=== PATIENT | female | born 1945 | race African-American/Black ===

== ENCOUNTER 2016-07-30 18:50 | Inpatient (IN) ==
--- NOTE | 2016-07-30 19:01 | Emergency Department Note ---
Disposition Clinical Impression: CVA (cerebral vascular accident) Qualifiers: CVA mechanism: other Qualified Code(s): I63.8 - Other cerebral infarction Disposition: Admitted As Inpatient Condition: Fair General Adult HPI - General Chief complaint: ED Fall Stated complaint: L sided Weakness Time Seen by Provider: 07/30/16 18:52 Source: patient Limitations: no limitations Nursing Notes Reviewed: Yes Vital Signs Reviewed: Yes - History of Present Illness HPI Narrative: Patient was found down today prior to arrival. Patient states her last known well was read him. Patient is unsure what happened when she fell on the floor. Someone came over to her house and found the patient down. Patient normally is functional and lives at home alone. Patient denies prior history of similar symptoms. Patient does know she had a heart attack in 2014 but denies any current chest pain or shortness of breath. Patient denies any dizziness or pain. Pain Scale: 0 - Related Data Home Medications Medication Instructions Recorded Confirmed Diltiazem HCl [Diltiazem 24Hr Cd] 240 mg PO DAILY 02/17/16 07/30/16 Fenofibrate [Lofibra] 160 mg PO DAILY 02/17/16 07/30/16 Metoprolol [Lopressor] 50 mg PO BID 02/17/16 07/30/16 Sotalol [Betapace] 80 mg PO DAILY 02/17/16 07/30/16 Atorvastatin Calcium [Lipitor] 20 mg PO HS 07/30/16 07/30/16 Allergies Allergy/AdvReac Type Severity Reaction Status Date / Time Penicillins Allergy Hives Verified 02/17/16 19:46 Sulfa (Sulfonamide Allergy Hives Verified 02/17/16 19:46 Antibiotics) All systems ED: reviewed and negative except as stated. Past Medical History - Past Medical History Source: patient, other (ems) Medical history: Reports: hypertension, myocardial infarction, other Psychiatric history: Reports: no psych history - Social History Smoking Status: Never smoker Smokeless Tobacco Status: No Alcohol use: Reports: none Drug use: Reports: none Physical Exam - General Limitations: physical limitation General appearance: alert, lethargic - Head Head exam: atraumatic, normocephalic, normal inspection - Eye Eye exam: Present: normal appearance, PERRL, EOMI - ENT ENT exam: normal exam, normal oropharynx, mucous membranes moist - Neck Neck exam: Present: normal inspection, full ROM, trachea midline - Chest Chest inspection: Present: normal inspection, symmetric chest wall rise - Respiratory Respiratory exam: Present: normal lung sounds bilaterally - Cardiovascular Cardiovascular exam: Present: regular rate, normal rhythm, normal heart sounds - Abdominal Exam Abdominal exam: Present: soft, Non-Tender. Absent: tenderness, distention, guarding, rebound, rigidity - Extremities Exam Extremities exam: Present: other (no Movement of left upper and lower extremity) - Back Exam Back exam: Absent: tenderness, CVA tenderness (R), CVA tenderness (L) - Neurological Exam Neurological exam: Present: alert, other (Left upper and left lower extremity is flaccid. Patient also has some left-sided facial droop.) - Psychiatric Psychiatric exam: Present: normal affect - Skin Skin exam: Present: warm, dry, intact, normal color Course - Consultations Consultation #1: I discussed this patient with Dr. Abdi of neurology. He states that to start the patient aspirin and he will see the patient in consult. Vital Signs Temperature 97.3 F L 07/30/16 18:51 Pulse Rate 70 07/30/16 18:51 Respiratory Rate 20 07/30/16 18:51 Blood Pressure 159/118 07/30/16 18:51 O2 Sat by Pulse Oximetry 95 07/30/16 18:51 Temperature 97.6 F 07/30/16 23:27 Pulse Rate 82 07/30/16 23:27 Respiratory Rate 17 07/30/16 23:27 Blood Pressure 178/110 07/30/16 23:27 O2 Sat by Pulse Oximetry 98 07/30/16 23:27 Oxygen Delivery Oxygen Delivery Room Air Medical Decision Making - Differential Diagnosis CVA, aortic dissection, SC, pulmonary embolus. - Medical Records Medical records reviewed: Yes I reviewed the patient's medical records. - Lab Data Lab results reviewed: Yes I reviewed the patient's lab results. Result diagrams: 07/30/16 20:23 07/30/16 20:23 Lab Results 07/30/16 07/30/16 07/30/16 Range/Units 18:53 19:24 19:38 WBC (4.3-11.1) K/mcL RBC (3.82-4.97) M/mcL Hgb (11.5-15.4) g/dL Hct (35.3-44.9) % MCV (83.0-100.0) fL MCH (28.0-33.3) pg MCHC (31.6-35.5) g/dL RDW (11.5-14.5) % Plt Count (140-400) K/mcL MPV (9.4-12.4) fL Immature Gran % (0-4) % Seg Neutrophils % % Lymphocytes % % Monocytes % % Eosinophils % % Basophils % % Neutrophils # (1.6-8.9) K/mcL Lymphocytes # (0.6-4.6) K/mcL Monocytes # (0.0-1.3) K/mcL Eosinophils # (0.0-0.6) K/mcL Basophils # (0.0-0.2) K/mcL PT (9.4-12.1) Seconds INR APTT (26.0-36.0) Seconds Sodium (136-145) mEq/L Potassium (3.5-4.5) mEq/L Chloride (98-109) mEq/L Carbon Dioxide (19-29) mEq/L BUN (7-20) mg/dL Creatinine (0.57-1.11) mg/dL Est GFR ( Amer) (> 60) Est GFR (Non-Af Amer) (> 60) BUN/Creatinine Ratio (6-26) Glucose (70-99) mg/dL POC Glucose 100 H (58-89) Calculated Osmolality (280-300) Lactic Acid (0.5-2.2) mmol/L Calcium (8.6-10.8) mg/dL Total Bilirubin (0.2-1.2) mg/dL AST (5-34) Units/L ALT (0-55) Units/L Alkaline Phosphatase (38-126) Units/L Troponin I (0-0.03) ng/mL B-Natriuretic Peptide 573 H (0-100) pg/mL Serum Total Protein (6.0-8.3) g/dL Albumin (3.5-5.0) g/dL Globulin (2.4-3.5) g/dL Albumin/Globulin Ratio (1.1-2.2) Urine Color (Yellow) Urine Clarity (Clear) Urine pH (5.0-8.0) pH Units Ur Specific [place] (1.010-1.025) Urine Protein (Neg-Trace) mg/dL Urine Glucose (UA) (Normal) mg/dL Urine Ketones (Negative) mg/dL Urine Blood (Negative) Urine Nitrite (Negative) Urine Bilirubin (Negative) Urine Urobilinogen (Normal) mg/dL Ur Leukocyte Esterase (Negative) Urine Microscopic RBC (0-3) per hpf Urine Microscopic WBC (0-3) per hpf Ur Squamous Epith Cells (None-Few) per lpf Urine Bacteria (None-Few) per hpf Hyaline Casts (None-Few) per lpf Ur Culture Indicated? (NO) Specimen Rejected Hemolyzed 07/30/16 07/30/16 07/30/16 Range/Units 19:48 20:23 20:23 WBC 16.3 H (4.3-11.1) K/mcL RBC 5.22 H (3.82-4.97) M/mcL Hgb 15.1 (11.5-15.4) g/dL Hct 46.2 H (35.3-44.9) % MCV 88.5 (83.0-100.0) fL MCH 28.9 (28.0-33.3) pg MCHC 32.7 (31.6-35.5) g/dL RDW 13.8 (11.5-14.5) % Plt Count 301 (140-400) K/mcL MPV 9.8 (9.4-12.4) fL Immature Gran % 0.5 (0-4) % Seg Neutrophils % 86.0 % Lymphocytes % 8.8 % Monocytes % 4.5 % Eosinophils % 0.0 % Basophils % 0.2 % Neutrophils # 14.0 H (1.6-8.9) K/mcL Lymphocytes # 1.4 (0.6-4.6) K/mcL Monocytes # 0.7 (0.0-1.3) K/mcL Eosinophils # 0.0 (0.0-0.6) K/mcL Basophils # 0.0 (0.0-0.2) K/mcL PT 13.4 H (9.4-12.1) Seconds INR 1.2 APTT 27.5 (26.0-36.0) Seconds Sodium (136-145) mEq/L Potassium (3.5-4.5) mEq/L Chloride (98-109) mEq/L Carbon Dioxide (19-29) mEq/L BUN (7-20) mg/dL Creatinine (0.57-1.11) mg/dL Est GFR ( Amer) (> 60) Est GFR (Non-Af Amer) (> 60) BUN/Creatinine Ratio (6-26) Glucose (70-99) mg/dL POC Glucose (58-89) Calculated Osmolality (280-300) Lactic Acid (0.5-2.2) mmol/L Calcium (8.6-10.8) mg/dL Total Bilirubin (0.2-1.2) mg/dL AST (5-34) Units/L ALT (0-55) Units/L Alkaline Phosphatase (38-126) Units/L Troponin I (0-0.03) ng/mL B-Natriuretic Peptide (0-100) pg/mL Serum Total Protein (6.0-8.3) g/dL Albumin (3.5-5.0) g/dL Globulin (2.4-3.5) g/dL Albumin/Globulin Ratio (1.1-2.2) Urine Color Yellow (Yellow) Urine Clarity Cloudy A (Clear) Urine pH 7.0 (5.0-8.0) pH Units Ur Specific [place] 1.018 (1.010-1.025) Urine Protein 30 H (Neg-Trace) mg/dL Urine Glucose (UA) Normal (Normal) mg/dL Urine Ketones Negative (Negative) mg/dL Urine Blood Negative (Negative) Urine Nitrite Negative (Negative) Urine Bilirubin Negative (Negative) Urine Urobilinogen Normal (Normal) mg/dL Ur Leukocyte Esterase Negative (Negative) Urine Microscopic RBC 0-3 (0-3) per hpf Urine Microscopic WBC 0-3 (0-3) per hpf Ur Squamous Epith Cells Many H (None-Few) per lpf Urine Bacteria None Seen (None-Few) per hpf Hyaline Casts None Seen (None-Few) per lpf Ur Culture Indicated? NO (NO) Specimen Rejected 07/30/16 07/30/16 07/30/16 Range/Units 20:23 20:23 20:23 WBC (4.3-11.1) K/mcL RBC (3.82-4.97) M/mcL Hgb (11.5-15.4) g/dL Hct (35.3-44.9) % MCV (83.0-100.0) fL MCH (28.0-33.3) pg MCHC (31.6-35.5) g/dL RDW (11.5-14.5) % Plt Count (140-400) K/mcL MPV (9.4-12.4) fL Immature Gran % (0-4) % Seg Neutrophils % % Lymphocytes % % Monocytes % % Eosinophils % % Basophils % % Neutrophils # (1.6-8.9) K/mcL Lymphocytes # (0.6-4.6) K/mcL Monocytes # (0.0-1.3) K/mcL Eosinophils # (0.0-0.6) K/mcL Basophils # (0.0-0.2) K/mcL PT (9.4-12.1) Seconds INR APTT (26.0-36.0) Seconds Sodium 142 (136-145) mEq/L Potassium 3.6 (3.5-4.5) mEq/L Chloride 109 (98-109) mEq/L Carbon Dioxide 23 (19-29) mEq/L BUN 16 (7-20) mg/dL Creatinine 0.89 (0.57-1.11) mg/dL Est GFR ( Amer) > 60 (> 60) Est GFR (Non-Af Amer) > 60 (> 60) BUN/Creatinine Ratio 18 (6-26) Glucose 112 H (70-99) mg/dL POC Glucose (58-89) Calculated Osmolality 296 (280-300) Lactic Acid 1.4 (0.5-2.2) mmol/L Calcium 11.0 H (8.6-10.8) mg/dL Total Bilirubin 0.7 (0.2-1.2) mg/dL AST 23 (5-34) Units/L ALT 18 (0-55) Units/L Alkaline Phosphatase 65 (38-126) Units/L Troponin I 0.08 H* (0-0.03) ng/mL B-Natriuretic Peptide (0-100) pg/mL Serum Total Protein 7.3 (6.0-8.3) g/dL Albumin 4.1 (3.5-5.0) g/dL Globulin 3.2 (2.4-3.5) g/dL Albumin/Globulin Ratio 1.3 (1.1-2.2) Urine Color (Yellow) Urine Clarity (Clear) Urine pH (5.0-8.0) pH Units Ur Specific [place] (1.010-1.025) Urine Protein (Neg-Trace) mg/dL Urine Glucose (UA) (Normal) mg/dL Urine Ketones (Negative) mg/dL Urine Blood (Negative) Urine Nitrite (Negative) Urine Bilirubin (Negative) Urine Urobilinogen (Normal) mg/dL Ur Leukocyte Esterase (Negative) Urine Microscopic RBC (0-3) per hpf Urine Microscopic WBC (0-3) per hpf Ur Squamous Epith Cells (None-Few) per lpf Urine Bacteria (None-Few) per hpf Hyaline Casts (None-Few) per lpf Ur Culture Indicated? (NO) Specimen Rejected - Radiology Data Radiology results reviewed: Yes I reviewed the patient's radiology results. Head CT 07/30/16 18:52 IMPRESSION: 1. No acute intracranial abnormality. 2. Moderate periventricular subcortical white matter low attenuation, likely represent sequela of chronic small vessel ischemic disease. D/ / Dm Bassett MD / Dm Bassett MD Interpreting Provider: Dm Bassett MD Cervical Spine CT 07/30/16 18:53 IMPRESSION: 1. No acute fracture subluxation of the cervical spine. 2. [id number] multifocal cervical spine spondylosis, worse from C5-C7 3. Few scattered focal lucencies identified throughout the cervical spine, nonspecific, may represent osteoporosis. D/ / Dm Bassett MD / Dm Bassett MD Interpreting Provider: Dm Bassett MD Chest X-Ray 07/30/16 18:53 IMPRESSION: 1. Mild apparent widening of mediastinum, nonspecific and may be related to patient positioning overlying vascular structures. 2. Otherwise no acute cardiopulmonary findings. D/ / Dm Bassett MD / Dm Bassett MD Interpreting Provider: Dm Bassett MD - EKG Data EKG #1 EKG attestation: Yes I reviewed and interpreted this EKG. EKG shows normal: sinus rhythm Rate: normal Rhythm: NSR Critical Care Time Total Critical Care Time: 60 Attestation: Critical care performed: Time is exclusive of separately billable procedures. Time includes: direct patient care, patient reassessment, coordination of patient care, interpretation of data (laboratory data, radiology data, and respiratory data), review of patient's medical records, medical consultation and documentation of patient care. Procedures included in critical care time: Procedures excluded from critical care time:
[2016-07-30 19:57] LABS: Bilirubin,Urine Negative (Negative); Blood,Urine Negative (Negative); Clarity,Urine Cloudy (Clear); Color,Urine Yellow (Yellow); Glucose,Urine (UA) Normal (Normal); Ketones,Urine Negative (Negative); Leukocyte Esterase,Urine Negative (Negative); Nitrite,Urine Negative (Negative); Protein,Urine 30 mg/dL (Neg-Trace); Specific Gravity,Urine 1.018 (1.010-1.025); Urobilinogen,Urine Normal (Normal)
[2016-07-30 20:00] LABS: Bacteria,Urine None Seen per hpf (None-Few); Hyaline Casts,Urine None Seen per lpf (None-Few); RBC,Urine 0-3 per hpf (0-3); Squamous Epithelial Cell,Urine Many per lpf (None-Few); WBC,Urine 0-3 per hpf (0-3)
[2016-07-30 20:31] LABS: Basophils % 0.2 %; Hematocrit 46.2 % (35.3-44.9); Hemoglobin 15.1 g/dL (11.5-15.4); Immature Granulocytes % 0.5 % (0-4); Lymphocytes # 1.4 K/mcL (0.6-4.6); Lymphocytes % 8.8 %; Mean Corpuscular HGB Conc 32.7 g/dL (31.6-35.5); Mean Corpuscular Hemoglobin 28.9 pg (28.0-33.3); Mean Corpuscular Volume 88.5 fL (83.0-100.0); Mean Platelet Volume 9.8 fL (9.4-12.4); Monocytes # 0.7 K/mcL (0.0-1.3); Monocytes % 4.5 %; Platelet Count 301 K/mcL (140-400); Red Blood Count 5.22 M/mcL (3.82-4.97); Red Cell Distribution Width 13.8 % (11.5-14.5)
[2016-07-30 20:35] LABS: INR 1.2; Prothrombin Time 13.4 Seconds (9.4-12.1)
[2016-07-30 20:38] LABS: Activated Partial Thrombo Time 27.5 Seconds (26.0-36.0)
[2016-07-30 20:44] LABS: Alanine Aminotransferase 18 Units/L (0-55); Albumin 4.1 g/dL (3.5-5.0); Albumin/Globulin Ratio 1.3 (1.1-2.2); Alkaline Phosphatase 65 Units/L (38-126); Aspartate Amino Transferase 23 Units/L (5-34); BUN/Creatinine Ratio 18 (6-26); Bilirubin,Total 0.7 mg/dL (0.2-1.2); Blood Urea Nitrogen 16 mg/dL (7-20); Carbon Dioxide 23 mEq/L (19-29); Chloride 109 mEq/L (98-109); Globulin 3.2 g/dL (2.4-3.5); Glucose 112 mg/dL (70-99); Osmolality,Calculated 296 (280-300); Potassium 3.6 mEq/L (3.5-4.5); Sodium 142 mEq/L (136-145); Total Protein 7.3 g/dL (6.0-8.3); eGFR For African Americans > 60 (> 60); eGFR For Non-African Americans > 60 (> 60)
[2016-07-30] MEDS ORDERED: Aspirin 81 MG TAB.CHEW PO STA (21:54)
[2016-07-31] MEDS ORDERED: *HR* Morphine 2 MG/ML SYRINGE IVP ONE
[2016-07-31] MEDS ORDERED: *HR* Promethazine 25 MG/ML VIAL IVP ONE (00:11)
[2016-07-31] MEDS ORDERED: Ondansetron 4 MG/2 ML VIAL IVP PRN (01:22)
--- NOTE | 2016-07-31 01:59 | Internal Med History&Physical ---
<Richard Goddard - Last Filed: 07/31/16 02:57> Date of Encounter: 07/31/16 Time of Encounter: 01:00 Assessment and Plan (1) CVA (cerebral vascular accident) Current visit: Yes Status: Acute - Acute onset of stroke resulting in dysarthria, left facial droop and left hemiparesis. - Suspect secondary to cardiac thrombus given patient's paroxysmal A-fib and only on baby aspirin for anticoagulation. - CT head found no acute intracranial abnormality. - Will obtain MRI brain and MRA head & neck for further evaluation. - Will obtain TTE to evaluate possible cardiac thrombus. If that's negative, consider cardiology consult to obtain ELOINA for better evaluation. - Continue telemetry monitoring. - Neurology has been called and consulted per ED physician. Appreciate neurology input. - Speech therapy to evaluate and treat dysarthria and dysphagia. - Will start PO medications, especially aspirin and atorvastatin once patient passed swallow evaluation by speech therapy. - PT/OT and social service consult for the need of rehab after discharge. - Fall precaution. - Closely monitor with frequent neuro check. Qualifiers: CVA mechanism: unspecified Qualified Code(s): I63.9 - Cerebral infarction, unspecified (2) Paroxysmal atrial fibrillation Current visit: Yes Status: Chronic - Currently rate controlled and in sinus rhythm. - Will resume patient home Cardizem, Sotalol and Lopressor once patient passed swallow evaluation by speech therapy. - Per patient, her only anticoagulation prior to admission is only aspirin. - Patient may need to discuss with cardiology regarding anticoagulation choice. (3) Elevated troponin Current visit: Yes Status: Acute - Elevated troponin at 0.08. - Likely secondary to stroke. Doubt [place] given no significant ischemic change on EKG. - Will repeat troponin in the morning. (4) Hypertension Current visit: Yes Status: Chronic - BP 170s/110s. - Hold patient's home antihypertensive medications to allow permissive hypertension. No treatment unless SBP > 220 or DBP > 120. - Continue to monitor. Qualifiers: Hypertension type: essential hypertension Qualified Code(s): I10 - Essential (primary) hypertension (5) DVT prophylaxis Current visit: Yes Status: Acute - SQ heparin. Internal Medicine - H&P: HPI Chief complaint: Stroke Admitted From: Emergency Dept Plans for Post Hospital Care: Transfer Group Home Facility History of present illness: Ms. Ball is a 71 year old female with PMH of paroxysmal A-fib (on Cardizem, Sotalol, Lopressor & baby aspirin), HTN, hyperlipidemia, sarcoidosis, hypertrophic obstructive cardiomyopathy. Patient was found fall on the floor for more than 14 hours (3 am to 5 pm on 07/30) and sent to [facility] ED. Patient reports her knee giving off in her way to restroom and resulted in fall forward on her chest and hit the front of her head. Patient denies loss of consciousness or chest pain/discomfort prior to the event. Patient cannot get up as she cannot move, likely from her left-sided weakness. Per family member who found patient, she had some urinary incontinence but no jerking or tongue bitting. Patient was also noted to have slurred speech and reports difficult swallowing. Patient reports having short period of black out of left vision recently. Patient denies hearing change, fever, chills, lower extremity edema. Patient states she doesn't want resuscitation if cardiac arrest. Patient reports no known metal implant or pacemaker. Past Med Surg Social Fam HX - Past Medical History Medical history: atrial fibrillation (Paroxysmal), cardiomyopathy (hypertrophic obstructive cardiomyopathy.), hyperlipidemia, hypertension, myocardial infarction (2015. No significant stenosis on heart cath in 2016.), other ( Sarcoidosis) Psychiatric history: no psych history - Past Surgical History Surgical History: cholecystectomy, hysterectomy, other (exploratory laproscopy) - Social History Smoking Status: Never smoker Smokeless Tobacco Status: No Alcohol use: none Drug use: none - Family History Mother Living Status: Hx Family Cardiac Disorders: Yes (HTN) Hx Family Neurologic Disorders: Yes (Stroke, Culp's palsy) Internal Medicine - H&P: Meds Diltiazem HCl [Diltiazem 24Hr Cd] 240 mg PO DAILY 02/17/16 [History] Fenofibrate [Lofibra] 160 mg PO DAILY 02/17/16 [History] Metoprolol [Lopressor] 50 mg PO BID 02/17/16 [History] Sotalol [Betapace] 80 mg PO DAILY 02/17/16 [History] Atorvastatin Calcium [Lipitor] 20 mg PO HS 07/30/16 [History] Allergies Penicillins Allergy (Verified 02/17/16 19:46) Hives Sulfa (Sulfonamide Antibiotics) Allergy (Verified 02/17/16 19:46) Hives All Systems PM: A 10-system review of systems was performed and is negative for pertinent findings except as documented above in the HPI. - Constitutional Constitutional: falls, no chills, no fever(s) - EENT Eyes: change in vision Ears: no decreased hearing Nose, mouth and throat: dysphagia - Cardiovascular Cardiovascular ROS IM: lightheadedness, syncope (Occasional syncope when change in position (e.g. getting up from sitting position)), no chest pain, no palpitations - Respiratory Respiratory: cough (nonproductive), no dyspnea, no hemoptysis - Gastrointestinal Gastrointestinal: abdominal pain (mid suprapubic, aggravated when patient tried to get up.), nausea, no diarrhea, no hematochezia, no melena, no vomiting - Genitourinary Genitourinary: no difficulty urinating, no dysuria, no hematuria - Musculoskeletal Musculoskeletal ROS IM: no arthralgias, no myalgias - Integumentary Integumentary IM: no pruritus, no rash - Neurological Neurological ROS: as per HPI - Hematologic/Lymphatic Hematologic/Lymphatic: no easy bleeding, no easy bruising - Constitutional Vitals: Temp Pulse Resp BP Pulse Ox 97.6 F 82 18 178/110 98 07/30/16 23:30 07/30/16 23:30 07/30/16 23:30 07/30/16 23:30 07/30/16 23:27 General appearance: Present: cooperative, A&O X 3, no acute distress, answers questions appropriately (Patient seems to use correct words to answer but canot say them clearly from dysarthria. ) - Head Head exam: Present: atraumatic, normocephalic - Eye Eye exam: Present: EOMI, PERRL, conjuntiva pink, sclera anicteric - Neck Neck exam general surgery: Present: supple, trachea midline. Absent: lymphadenopathy - Respiratory Respiratory exam: Present: decreased breath sounds. Absent: accessory muscle use, rales, rhonchi, wheezes - Cardiovascular Cardiovascular exam: Present: RRR, +S1, +S2. Absent: diastolic murmur, gallop, rubs, systolic murmur - GI/Abdominal GI/Abdominal exam: Present: normal bowel sounds, soft, tenderness (Mid suprapubic area), no peritoneal signs. Absent: distended - Extremities Exam Extremities exam: Present: warm, radial pulses palpable and symetrical. Absent : calf tenderness, cyanotic, pedal edema - Neurological Exam Neurological exam: Present: CN II-XII intact (Except left facial droop), oriented X3. Absent: pronater drift, facial droop, speech deficit Additional comments: Patient cannot move left upper and lower extremities. Also no sensation of left upper extremity. Decrease DTRs of left upper and lower extremities. - Skin Skin exam: Present: dry, intact Internal Med - H&P Results - Labs CBC & Chem 7: 07/30/16 20:23 07/30/16 20:23 Labs: Short CBC 07/30/16 Range/Units 20:23 WBC 16.3 H (4.3-11.1) K/mcL Hgb 15.1 (11.5-15.4) g/dL Hct 46.2 H (35.3-44.9) % Plt Count 301 (140-400) K/mcL Neutrophils # 14.0 H (1.6-8.9) K/mcL BMP 07/30/16 Range/Units 20:23 Sodium 142 (136-145) mEq/L Potassium 3.6 (3.5-4.5) mEq/L Chloride 109 (98-109) mEq/L Carbon Dioxide 23 (19-29) mEq/L BUN 16 (7-20) mg/dL Creatinine 0.89 (0.57-1.11) mg/dL Glucose 112 H (70-99) mg/dL Calcium 11.0 H (8.6-10.8) mg/dL Cardiac Enzymes 07/30/16 Range/Units 20:23 Troponin I 0.08 H* (0-0.03) ng/mL Liver Function 07/30/16 Range/Units 20:23 Total Bilirubin 0.7 (0.2-1.2) mg/dL AST 23 (5-34) Units/L ALT 18 (0-55) Units/L Alkaline Phosphatase 65 (38-126) Units/L Albumin 4.1 (3.5-5.0) g/dL Urine 07/30/16 Range/Units 19:48 Urine Color Yellow (Yellow) Urine Clarity Cloudy A (Clear) Urine pH 7.0 (5.0-8.0) pH Units Ur Specific [place] 1.018 (1.010-1.025) Urine Protein 30 H (Neg-Trace) mg/dL Urine Glucose (UA) Normal (Normal) mg/dL - EKG Data -: EKG Interpreted by Myself EKG shows normal: sinus rhythm Rate: tachycardia - EKG Data Prior EKG available for review: no EKG comments: 07/31/16 02:49 First degree AV block & LVH. No significant ischemic change. - Impressions Impressions Head CT 07/30/16 18:52 IMPRESSION: 1. No acute intracranial abnormality. 2. Moderate periventricular subcortical white matter low attenuation, likely represent sequela of chronic small vessel ischemic disease. D/ / Dm Bassett MD / Dm Bassett MD Interpreting Provider: Dm Bassett MD Cervical Spine CT 07/30/16 18:53 IMPRESSION: 1. No acute fracture subluxation of the cervical spine. 2. [id number] multifocal cervical spine spondylosis, worse from C5-C7 3. Few scattered focal lucencies identified throughout the cervical spine, nonspecific, may represent osteoporosis. D/ / Dm Bassett MD / Dm Bassett MD Interpreting Provider: Dm Bassett MD Chest X-Ray 07/30/16 18:53 IMPRESSION: 1. Mild apparent widening of mediastinum, nonspecific and may be related to patient positioning overlying vascular structures. 2. Otherwise no acute cardiopulmonary findings. D/ / Dm Bassett MD / Dm Bassett MD Interpreting Provider: Dm Bassett MD <Dejon Roy R - Last Filed: 07/31/16 08:29> Date of Encounter: 07/31/16 Internal Medicine - H&P: HPI History of present illness: Ms. Ball is a 71 year old female All Systems PM: A 10-system review of systems was performed and is negative for pertinent findings except as documented above in the HPI. - Constitutional Vitals: Temp Pulse Resp BP Pulse Ox 97.8 F 74 16 133/89 95 07/31/16 06:46 07/31/16 06:46 07/31/16 06:46 07/31/16 06:46 07/31/16 06:46 Internal Med - H&P Results - Labs CBC & Chem 7: 07/31/16 05:08 07/31/16 05:08 Labs: Short CBC 07/31/16 Range/Units 05:08 WBC 12.9 H (4.3-11.1) K/mcL Hgb 14.1 (11.5-15.4) g/dL Hct 43.2 (35.3-44.9) % Plt Count 307 (140-400) K/mcL Neutrophils # 10.4 H (1.6-8.9) K/mcL BMP 07/31/16 05:08 Sodium 144 Potassium 3.8 Chloride 109 Carbon Dioxide 24 BUN 20 Creatinine 1.03 Glucose 122 H Calcium 10.7 Cardiac Enzymes 07/31/16 Range/Units 05:08 Troponin I 0.16 H* (0-0.03) ng/mL Liver Function 07/31/16 Range/Units 05:08 Total Bilirubin 0.8 (0.2-1.2) mg/dL AST 34 (5-34) Units/L ALT 19 (0-55) Units/L Alkaline Phosphatase 58 (38-126) Units/L Albumin 3.9 (3.5-5.0) g/dL - Attending Attestation I performed history and physical examination of the patient and discussed management with resident/Cosmetician. I reviewed the resident/ Interns note and agree with the documented findings and plan of care. 71 Y/F with h/o paroxysmal A-fib not on anticoagulation, HTN, hyperlipidemia, sarcoidosis, hypertrophic obstructive cardiomyopathy. Patient was apparently found on the floor possibly there for several hours. Reportedly, her knees gave way and fell down, without loss of consciousness. She reported left sided weakness, speech and swallowing problems. CT head is negative for acute lesions. O/E: Left upper and lower extremity weakness; up going left plantar; left facial weakness. Pt somnolent and not talking at my evaluation. Cardiac: systolic murmur present; Lungs: few bilateral basal crackles. EKG personally reviewed by me shows sinus rhythm; T wave inversion in lead III, V2-v6. Labs reviewed. A/P: Acute CVA: Likely embolic source from the heart (h/o Paroxysmal A Fib). Will obtain MRI to pain, MRA of head and neck. Neurology consultation. Specific PT, OT evaluation. Echocardiogram. Cardiology consult for elevated troponin and paroxysmal A Fib.
[2016-07-31 06:00] LABS: Basophils % 0.3 %; Eosinophils % 0.1 %; Hematocrit 43.2 % (35.3-44.9); Hemoglobin 14.1 g/dL (11.5-15.4); Immature Granulocytes % 0.4 % (0-4); Lymphocytes # 1.7 K/mcL (0.6-4.6); Lymphocytes % 12.8 %; Mean Corpuscular HGB Conc 32.6 g/dL (31.6-35.5); Mean Corpuscular Hemoglobin 28.8 pg (28.0-33.3); Mean Corpuscular Volume 88.3 fL (83.0-100.0); Mean Platelet Volume 10.3 fL (9.4-12.4); Monocytes # 0.8 K/mcL (0.0-1.3); Monocytes % 6.1 %; Neutrophils # 10.4 K/mcL (1.6-8.9); Platelet Count 307 K/mcL (140-400); Red Blood Count 4.89 M/mcL (3.82-4.97); Red Cell Distribution Width 13.9 % (11.5-14.5); Segmented Neutrophils % 80.3 %
[2016-07-31 06:07] LABS: Hemoglobin A1C 5.3 %
[2016-07-31] MEDS: Pantoprazole 40 MG VIAL IVP SCH (06:07)
[2016-07-31 06:19] LABS: Alanine Aminotransferase 19 Units/L (0-55); Albumin 3.9 g/dL (3.5-5.0); Albumin/Globulin Ratio 1.3 (1.1-2.2); Alkaline Phosphatase 58 Units/L (38-126); Aspartate Amino Transferase 34 Units/L (5-34); BUN/Creatinine Ratio 19 (6-26); Bilirubin,Total 0.8 mg/dL (0.2-1.2); Blood Urea Nitrogen 20 mg/dL (7-20); Calcium 10.7 mg/dL (8.6-10.8); Carbon Dioxide 24 mEq/L (19-29); Chloride 109 mEq/L (98-109); Chol/HDL Ratio 4.2 (0-4.9); Cholesterol 176 mg/dL (< 200); Globulin 3.1 g/dL (2.4-3.5); Glucose 122 mg/dL (70-99); HDL Cholesterol 42 mg/dL (40-59); LDL Cholesterol,Calculated 109 mg/dL (0-99); Osmolality,Calculated 302 (280-300); Potassium 3.8 mEq/L (3.5-4.5); Sodium 144 mEq/L (136-145); Triglycerides 125 mg/dL (< 150); eGFR For African Americans > 60 (> 60); eGFR For Non-African Americans 53 (> 60)
[2016-07-31 06:35] LABS: Thyroid Stimulating Hormone 0.833 mcIU/mL (0.350-4.840)
--- NOTE | 2016-07-31 08:56 | Neurology - Consult Note ---
Date of Encounter: 07/31/16 Time of Encounter: 08:56 Assessment and Plan (1) Left-sided weakness Current Visit: Yes Status: Acute Currently patient still has dysarthria, tingling/numbness of left lower extremity, weakness of left upper/lower extremity, and she is drowsy. Head CT scan without contrast showed no acute intracranial abnormality, moderate ventricular subcortical white matter low attenuation, likely representing sequela of chronic small vessel ischemic disease. MRI of the brain/echo/MRA head and neck pending, patient has a history of atrial fibrillation but not on chronic anticoagulation therapy, she only takes aspirin daily, with her current mental status and severity of her neurological symptoms along with hx of a-fib not on anticoagulation, suspecting embolic stroke, lipid panel reviewed and currently she is on high intensity statin therapy, will make further recommendations after reviewing the images. History of Present Illness Chief complaint: Status post fell, slurred speech, left-sided weakness/tingling/ numbness HPI: Ms. Blal is a 71 year old female with history of paroxysmal atrial fibrillation, hypertrophic obstructive cardiomyopathy, hypertension, and hyperlipidemia who was brought from her home to the ER after she was found down on the floor for more than 12 hours by her neighbor and she presented to the ER with left-sided facial droop, left upper/lower extremities weakness/tingling/ numbness, and slurred speech. Patient has no history of stroke, and she never had these symptoms in the past, she lives alone, she does not use cane or walker , she is usually functional with activities of daily living, and has no baseline dementia. Unclear how she fell at home, loss of consciousness versus mechanical fall, patient is poor historian at this time with difficulty with her speech, and she is not on anticoagulation therapy for her history of atrial fibrillation, she just takes baby aspirin daily. Head CT scan without contrast showed no acute intracranial abnormality, moderate ventricular subcortical white matter low attenuation, likely representing sequela of chronic small vessel ischemic disease. When I saw her in the room, patient was somnolent, will open her eyes to voice, she still has slurred speech, tingling/numbness on the left lower extremity and weakness on left upper/lower extremities with slight left-sided facial droop, difficult to obtain accurate history from the patient at this time due to her speech and current mental status. Past Med Surg Social Fam HX - Past Medical History Medical history: atrial fibrillation (Paroxysmal), cardiomyopathy (hypertrophic obstructive cardiomyopathy.), hyperlipidemia, hypertension, myocardial infarction (2015. No significant stenosis on heart cath in 2016.), other ( Sarcoidosis) Psychiatric history: no psych history - Past Surgical History Surgical History: cholecystectomy, hysterectomy, other (exploratory laproscopy) - Social History Smoking Status: Never smoker Smokeless Tobacco Status: No Alcohol use: none Drug use: none - Family History Mother Living Status: Hx Family Cardiac Disorders: Yes (HTN) Hx Family Neurologic Disorders: Yes (Stroke, Culp's palsy) Father History Unknown: Yes Medications and Allergies Diltiazem HCl [Diltiazem 24Hr Cd] 240 mg PO DAILY 02/17/16 [History] Fenofibrate [Lofibra] 160 mg PO DAILY 02/17/16 [History] Metoprolol [Lopressor] 50 mg PO BID 02/17/16 [History] Sotalol [Betapace] 80 mg PO DAILY 02/17/16 [History] Atorvastatin Calcium [Lipitor] 20 mg PO HS 07/30/16 [History] Allergies Penicillins Allergy (Verified 02/17/16 19:46) Hives Sulfa (Sulfonamide Antibiotics) Allergy (Verified 02/17/16 19:46) Hives All Systems: A 10-system review of systems was performed and is negative for pertinent findings except as documented above in the HPI. Review of Systems: Review of systems is limited due to her speech difficulty and current mental status, patient is very drowsy at this time, patient admits tingling/numbness of lower extremity and weakness of the left upper/lower extremities. 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4 K/mcL (1.6-8.9) H 07/31/16 05:08 PT 13.4 Seconds (9.4-12.1) H 07/30/16 20:23 Est GFR (Non-Af Amer) 53 (> 60) L 07/31/16 05:08 Glucose 122 mg/dL (70-99) H 07/31/16 05:08 POC Glucose 100 (58-89) H 07/30/16 18:53 Calculated Osmolality 302 (280-300) H 07/31/16 05:08 Troponin I 0.16 ng/mL (0-0.03) H* 07/31/16 05:08 B-Natriuretic Peptide 573 pg/mL (0-100) H 07/30/16 19:24 LDL Cholesterol, Calc 109 mg/dL (0-99) H 07/31/16 05:08 Urine Clarity Cloudy (Clear) A 07/30/16 19:48 Urine Protein 30 mg/dL (Neg-Trace) H 07/30/16 19:48 Ur Squamous Epith Cells Many per lpf (None-Few) H 07/30/16 19:48 Consult Discharge Plan - Plan Referrals: NO,PCP [Primary Care Provider] -
--- NOTE | 2016-07-31 11:19 | Cardiology Consult Note ---
Addendum entered and electronically signed by Trey Taylor CNP 07/31/16 12:45: Discussed with neurologist Dr. Abdi. He recommends waiting on MRI results, anticipate starting Xarelto in a few days, but will determine once MRI results. Original Note: Date of Encounter: 07/31/16 Time of Encounter: 11:16 Assessment and Plan (1) Paroxysmal atrial fibrillation Current Visit: Yes Status: Chronic Known hx of PAF. EKG and telemetry show pt is maintaining SR. She reports having palpitations last week and feeling like she was in A-Fib. Recommend resuming home Cardizem, Sotalol and Lopressor once patient passes swallow eval. Will change Sotalol from 80mg daily to 40mg BID. EKG reviewed, QRS and QTc within acceptable range. Here with CVA. CHADSVASC of 5 (Age, Female, HTN, CVA). Recommend anticoagulation for her PAF. Discussed NOACs vs. Coumadin. Pt has no preference. Xarelto carrizales check $36/ month. Will start. Pt reports recent falls, mechanical/orthostatic hypotension ( check orthostatic vitals). Given CVA, benefit of anticoagulation currently outweighs risk. (2) CVA (cerebral vascular accident) Current Visit: Yes Status: Acute Acute onset of stroke resulting in dysarthria, left facial droop and left hemiparesis. Suspect embolic source given hx of PAF on ASA only. CT head found no acute intracranial abnormality. MRI brain and MRA head & neck ordered by primary team. Echo pending. Maintaining SR on Sotalol currently. Neurology following. CHADSVASC of 5 (Age, Female, HTN, CVA). Recommend anticoagulation for her PAF. Discussed NOACs vs. Coumadin. Pt has no preference. Xarelto carrizales check $36/ month. Will start. Pt reports recent falls, mechanical. Given suspected CVA, benefit of anticoagulation currently outweighs risk. Qualifiers: CVA mechanism: unspecified Qualified Code(s): I63.9 - Cerebral infarction, unspecified (3) Elevated troponin Current Visit: Yes Status: Acute Troponins 0.08, 0.16 in setting of suspected CVA. Likely demand ischemia, nondiagnostic for ACS. Pt denies chest pain prior to fall. Reports current chest soreness s/p fall. [facility] 09/2015 at outside facility showed no significant CAD. Echo pending. (4) Hypertrophic cardiomyopathy Current Visit: Yes Status: Chronic Outside echo 09/2013 resting gradient 22mmHg. Current echo pending. Discussion w patient/family: The assessment and plan as outlined above was discussed with the patient and/or family members who expressed understanding and agreement. All questions were answered. Thank you for involving us in the care of your patient. Please call with any questions. I will discuss all the above with Dr. Franco and make changes as necessary. History of Present Illness Consult date: 07/31/16 Requesting physician: Dejon Roy Consult reason: CVA, A-Fib, elevated troponin Chief complaint: slurred speech, weakness History of present illness: Ms. Ball is a 71 year old female with PMH of PAF on Sotalol and ASA only for anticoagulation, hypertrophic obstructive cardiomyopathy, HTN, and HLD who was brought from her home to the ER after she was found down on the floor for more than 12 hours. She presented with left-sided facial droop, left upper/lower extremities weakness/tingling/numbness, and slurred speech. Patient has no history of stroke, and she never had these symptoms in the past, she lives alone , she does not use cane or walker, she is usually functional with activities of daily living, and has no baseline dementia. Family at bedside. Pt denies any syncopal event, states she just "toppled over". Head CT scan without contrast showed no acute intracranial abnormality, moderate ventricular subcortical white matter low attenuation, likely representing sequela of chronic small vessel ischemic disease. Pt has her eyes closed with in room, but will shake her head to questions and attempt to answer questions. She still has slurred speech, tingling/numbness on the left lower extremity and weakness on left upper /lower extremities with slight left-sided facial droop. Brain MRI is ordered, echo pending, carotids were ordered. Troponins found to be 0.08, 0.16. Pt reports chest soreness after her fall, but none prior. Pt does report she had palpitations last week and felt like she was in A-Fib. EKG sinus rhythm and tele all shows SR. Past CV testing: Per [facility], [facility] 10/04/15 in [place]: No significant CAD. Past Med Surg Social Fam HX - Past Medical History Medical history: atrial fibrillation (Paroxysmal), cardiomyopathy (hypertrophic obstructive cardiomyopathy.), hyperlipidemia, hypertension, myocardial infarction (2015. No significant stenosis on heart cath in 2016.), other ( Sarcoidosis) Psychiatric history: no psych history - Past Surgical History Surgical History: cholecystectomy, hysterectomy, other (exploratory laproscopy) - Social History Smoking Status: Never smoker Smokeless Tobacco Status: No Alcohol use: none Drug use: none - Family History Mother Living Status: Hx Family Cardiac Disorders: Yes (HTN) Hx Family Neurologic Disorders: Yes (Stroke, Culp's palsy) Father History Unknown: Yes Medications and Allergies Diltiazem HCl [Diltiazem 24Hr Cd] 240 mg PO DAILY 02/17/16 [History] Fenofibrate [Lofibra] 160 mg PO DAILY 02/17/16 [History] Metoprolol [Lopressor] 50 mg PO BID 02/17/16 [History] Sotalol [Betapace] 80 mg PO DAILY 02/17/16 [History] Atorvastatin Calcium [Lipitor] 20 mg PO HS 07/30/16 [History] Allergies Penicillins Allergy (Verified 02/17/16 19:46) Hives Sulfa (Sulfonamide Antibiotics) Allergy (Verified 02/17/16 19:46) Hives All Systems Review: A 10-system review of systems was performed and is negative for pertinent findings except as documented above in the HPI. - Constitutional Constitutional: frequent falls, weakness - Cardiovascular Cardiovascular: as per HPI, irregular heart rhythm, palpitations - Neurological Neurological: abnormal speech, focal weakness Physical Examination Vital Signs Temp Pulse Resp BP Pulse Ox 07/31/16 06:46 97.8 F 74 16 133/89 95 07/31/16 03:30 98.2 F 81 20 148/97 07/31/16 01:30 98 07/30/16 23:30 97.6 F 82 18 178/110 07/30/16 23:27 97.6 F 82 17 178/110 98 07/30/16 22:52 16 168/112 07/30/16 20:54 193/111 07/30/16 20:53 76 16 178/112 99 07/30/16 18:51 97.3 F L 70 20 159/118 95 Intake and Output 07/30/16 07/31/16 07/31/16 23:59 07:59 15:59 Other: Weight 81.647 kg Blood Glucose* 100 General: Conversant, No Apparent Distress HEENT: Atraumatic, Normocephaly, Mucus Membranes Moist Neck: No JVD, Normal carotid pulses Cardiac: Reg Rate and Rhythm, Normal S1 and S2, No Murmur Lungs: Normal Breath Sounds, No Wheeze, Rales, Rhonchi Neuro: Other (deficits noted, slurred speech, left sided weakness) Abdomen: Soft, Non-Tender Skin: No rashes noted on visualized skin Musculoskeletal: Other (chest wall tenderness) Extremities: No Clubbing, No Cyanosis, No Edema, Normal Pulses Results 07/31/16 05:08 07/31/16 05:08 Lab Results 07/31/16 07/31/16 07/31/16 05:08 05:08 05:08 WBC 12.9 H Hgb 14.1 Hct 43.2 Plt Count 307 Sodium 144 Potassium 3.8 Chloride 109 Carbon Dioxide 24 BUN 20 Creatinine 1.03 Glucose 122 H Calcium 10.7 Total Bilirubin 0.8 AST 34 ALT 19 Alkaline Phosphatase 58 Troponin I 0.16 H* TSH 0.833 Short CBC 07/31/16 07/30/16 Range/Units 05:08 20:23 WBC 12.9 H 16.3 H (4.3-11.1) K/mcL Hgb 14.1 15.1 (11.5-15.4) g/dL Hct 43.2 46.2 H (35.3-44.9) % Plt Count 307 301 (140-400) K/mcL Neutrophils # 10.4 H 14.0 H (1.6-8.9) K/mcL BMP 07/31/16 07/30/16 Range/Units 05:08 20:23 Sodium 144 142 (136-145) mEq/L Potassium 3.8 3.6 (3.5-4.5) mEq/L Chloride 109 109 (98-109) mEq/L Carbon Dioxide 24 23 (19-29) mEq/L BUN 20 16 (7-20) mg/dL Creatinine 1.03 0.89 (0.57-1.11) mg/dL Glucose 122 H 112 H (70-99) mg/dL Calcium 10.7 11.0 H (8.6-10.8) mg/dL Cardiac Enzymes 07/31/16 07/30/16 Range/Units 05:08 20:23 Troponin I 0.16 H* 0.08 H* (0-0.03) ng/mL Liver Function 07/31/16 07/30/16 Range/Units 05:08 20:23 Total Bilirubin 0.8 0.7 (0.2-1.2) mg/dL AST 34 23 (5-34) Units/L ALT 19 18 (0-55) Units/L Alkaline Phosphatase 58 65 (38-126) Units/L Albumin 3.9 4.1 (3.5-5.0) g/dL Urine 07/30/16 Range/Units 19:48 Urine Color Yellow (Yellow) Urine Clarity Cloudy A (Clear) Urine pH 7.0 (5.0-8.0) pH Units Ur Specific [place] 1.018 (1.010-1.025) Urine Protein 30 H (Neg-Trace) mg/dL Urine Glucose (UA) Normal (Normal) mg/dL Impressions Head CT 07/30/16 18:52 IMPRESSION: 1. No acute intracranial abnormality. 2. Moderate periventricular subcortical white matter low attenuation, likely represent sequela of chronic small vessel ischemic disease. D/ / Dm Bassett MD / Dm Bassett MD Interpreting Provider: Dm Bassett MD Cervical Spine CT 07/30/16 18:53 IMPRESSION: 1. No acute fracture subluxation of the cervical spine. 2. [id number] multifocal cervical spine spondylosis, worse from C5-C7 3. Few scattered focal lucencies identified throughout the cervical spine, nonspecific, may represent osteoporosis. D/ / Dm Bassett MD / Dm Bassett MD Interpreting Provider: Dm Bassett MD Chest X-Ray 07/30/16 18:53 IMPRESSION: 1. Mild apparent widening of mediastinum, nonspecific and may be related to patient positioning overlying vascular structures. 2. Otherwise no acute cardiopulmonary findings. D/ / Dm Bassett MD / Dm Bassett MD Interpreting Provider: Dm Bassett MD Active Medications Aspirin (Aspirin) 81 mg PO DAILY SARAH Stop: 01/30/17 09:01 Atorvastatin Calcium (Lipitor) 80 mg PO HS SARAH Stop: 01/30/17 09:01 Ondansetron HCl (Zofran) 4 mg IVP Q8HR PRN PRN Reason: Nausea And Vomiting Stop: 01/30/17 01:23 Pantoprazole Sodium (Protonix) 40 mg IVP 0630 SARAH Stop: 01/30/17 06:31 Last Admin: 07/31/16 06:07 Dose: 40 mg - Imaging and Cardiology Chest Xray: report reviewed Echo: pending Cardiac cath: report reviewed - EKG Interpretation EKG results cardiology: personally reviewed (SR with 1st degree block), other ( 24 hour tele AVG HR 78, SR, no significant pauses or arrhythmias.) Consult Discharge Plan - Plan Referrals: NO,PCP [Primary Care Provider] -
--- NOTE | 2016-07-31 11:27 | ECHO - Doppler Report ---
Echo with Saline Contrast Name: Isidra Ball Date of Study: 07/31/2016 Date: 1945 Ht: 67.0 in Medical Record#: [id number] Age: 71 Wt: 180.0 lb Gender: Female BSA: 1.93 Order #: [id number] Location: [facility] Room #: 2NE34 Reading Physician: Kenn Oscar MD, [facility] Try Out Person: Basilio Abdi Ordering Physician: Richard Goddard DO Primary Physician: None Indications: Cerebrovascular Accident Impressions: Normal LV systolic function, LVEF 70%. Moderate concentric left ventricular hypertrophy. There is systolic anterior motion (RODGER) of the mitral valve with mild LVOT obstruction at rest. Peak LVOT gradient 20 mmHg. Mean LVOT gradient 10 mmHg. Mild left ventricular diastolic dysfunction. Normal right ventricular size and function. No evidence of intracardiac shunting with agitated saline contrast. Mild aortic regurgitation. Borderline mild pulmonary hypertension. Estimated RVSP = 35 mmHg. Left Ventricular Wall Motion: Rest Echo Findings All wall segments showed normal motion. Findings: Study Quality * Suboptimal echo windows. ECG Findings * Normal sinus rhythm. Left Ventricle * Normal LV systolic function, LVEF 70%. * Moderate concentric left ventricular hypertrophy. * There is systolic anterior motion (RODGER) of the mitral valve with mild LVOT obstruction at rest. Peak LVOT gradient 20 mmHg. Mean LVOT gradient 10 mmHg. * Mild left ventricular diastolic dysfunction. Right Ventricle * Normal right ventricular size and function. Left Atrium * Normal left atrial size. Right Atrium * Normal right atrial size. Interatrial Septum * No evidence of intracardiac shunting with agitated saline contrast. Aorta * Normally sized aortic root. Pericardium * There is no pericardial effusion present. IVC * The IVC is not dilated. Aortic Valve * Aortic valve not well visualized. * No aortic stenosis. * Mild aortic regurgitation. Mitral Valve * Normal mitral valve structure. * There is systolic anterior motion (RODGER) of the mitral valve with mild LVOT obstruction at rest. Peak LVOT gradient 20 mmHg. Mean LVOT gradient 10 mmHg. * No mitral stenosis. * Trace mitral regurgitation. Tricuspid Valve * Normal tricuspid valve structure. * No tricuspid stenosis. * Trace tricuspid regurgitation. * Borderline mild pulmonary hypertension. Estimated RVSP = 35 mmHg. Pulmonic Valve * Pulmonic valve not well visualized. * No pulmonic stenosis. * No pulmonic regurgitation. History Hypertension Hypercholesteremia Contrast: Agitated saline 20 ml. Measurements: BP: 133/ 89 2D Normal Values IVSd: 1.40 cm 0.6 - 1.0 cm LVIDd: 3.90 cm 3.7 - 5.6 cm LVPWd: 1.40 cm 0.6 - 1.1 cm LVIDs: 2.40 cm 1.5 - 3.6 cm AO: 3.30 cm < 4.0 cm LVOT Diam: 1.70 cm LA volume: 50 Mitral Valve Peak E:.47 m/sec Peak A:.93 m/sec E/A Ratio:0.5 LVOT Peak Jose Alfredo:2.30 m/sec Peak Grad:20.00 mmHg Mean Grad:10.00 mmHg Tricuspid Valve TV Regurg Peak Grad: 30.00mmHg TV Regurg Peak Jose Alfredo: 2.75m/sec Updated by Kenn Oscar MD, [facility] on 07/31/2016 11:22:06 AM electronically signed on 07/31/2016 11:23:13 AM with status of Final Wall Motion Kaufman: 1=Normal, 2=Hypokinesis, 3=Akinesis, 4=Dyskinesis, 5=Aneurysmal, 6=Hyperkinetic, X=Not Visualized (Blank)=Missing
--- NOTE | 2016-07-31 11:46 | Electrocardiograph Report ---
[place] [id number] Test Date: 2016-07-30 Pat Name: Isidra Ball Department: 103 Room: 2NE34 Gender: F [employer]: VICTOR HUGO : 1945 Requested By: Jae Prakash Order Number: [id number] Reading MD: Paco Franco MD Measurements Intervals [place] Rate: 74 P: 19 ID: [id number] QRS: 30 QRSD: 93 T: 121 QT: 460 QTc: 487 Interpretive Statements SINUS RHYTHM WITH FIRST DEGREE AV BLOCK LEFT VENTRICULAR HYPERTROPHY Electronically Signed On 07-31-2016 11:44:37 EDT by Paco Franco MD
--- NOTE | 2016-07-31 13:38 | Electrocardiograph Report ---
[place] [address] Test Date: 2016-07-31 Pat Name: Isidra Ball Department: 111 Room: 2N4 Gender: F Licensed Acupuncturist: [id number] : 1945 Requested By: Richard Goddard Order Number: [id number] Reading MD: Paco Franco MD Measurements Intervals [place] Rate: 74 P: 14 OR: 197 QRS: 7 QRSD: 93 T: 76 QT: 414 QTc: 441 Interpretive Statements SINUS RHYTHM LEFT ATRIAL ENLARGEMENT LEFT VENTRICULAR HYPERTROPHY Electronically Signed On 07-31-2016 13:36:47 EDT by Paco Franco MD
--- NOTE | 2016-07-31 14:24 | Event Note ---
Date of Encounter: 07/31/16 Time of Encounter: 14:23 - Cardiology Event Note Echo resulted--EF preserved 70%, stable HOCM. Mild diastolic dysfunction. No evidence of intracardiac shunting with agitated saline contrast. Recommend Xarelto when okay with neuro. Cardiology signing off. Reconsult PRN. Will coordinate outpt follow-up.
[2016-07-31] MEDS: Acetaminophen 325 MG TABLET PO PRN (15:14)
[2016-07-31] MEDS: Aspirin 81 MG TAB.CHEW PO SCH (15:14)
--- NOTE | 2016-07-31 15:29 | Internal Med Progress Note ---
<Marta Castro - Last Filed: 07/31/16 16:44> Date of Encounter: 07/31/16 Time of Encounter: 15:27 - Assessment and plan (1) CVA (cerebral vascular accident) Current Visit: Yes Status: Acute Assessment and plan: CT head: No acute intracranial abnormality. Moderate periventricular subcortical white matter low attenuation, likely represent sequela of chronic small vessel ischemic disease. Echo: EF preserved 70%, stable HOCM. Mild diastolic dysfunction. No evidence of intracardiac shunting with agitated saline contrast. mechanically altered diet; meds in applesauce; nectar thickened fluids, no straw appreciate neurology recommendations MRI brain and MRA head and neck ordered carotid duplex ordered Qualifiers: CVA mechanism: unspecified Qualified Code(s): I63.9 - Cerebral infarction, unspecified (2) Elevated troponin Current Visit: Yes Status: Acute Assessment and plan: likey demand ischemia [facility] 09/2015 no significant CAD Echo: EF preserved 70%, stable HOCM. Mild diastolic dysfunction. No evidence of intracardiac shunting with agitated saline contrast. (3) Paroxysmal atrial fibrillation Current Visit: Yes Status: Chronic Assessment and plan: currently sinus rhythm appreciate cardiology recommendations continue home cardizem, sotalol, and lopressor - change sotalol from 80 mg daily to 40 mg BID start Xarelto for anticoagulation (CHADSVASC 5 - age, female, HTN, CVA) once cleared by neurology (4) Hypertrophic cardiomyopathy Current Visit: Yes Status: Chronic Assessment and plan: Echo: EF preserved 70%, stable HOCM. Mild diastolic dysfunction. No evidence of intracardiac shunting with agitated saline contrast. (5) DVT prophylaxis Current Visit: Yes Status: Acute Assessment and plan: SQ heoarin - Subjective Interval history: Patient seen and examined. Slurred speech but trying to answer questions and appears to be answering questions correctly. - Constitutional Vitals: Temp Pulse Resp BP Pulse Ox 98.9 F 80 18 145/126 95 07/31/16 12:00 07/31/16 12:00 07/31/16 12:00 07/31/16 12:00 07/31/16 12:00 General appearance: Present: cooperative, A&O X 3, no acute distress, answers questions appropriately (Patient seems to use correct words to answer but canot say them clearly from dysarthria. ) - Head Head exam: Present: atraumatic, normocephalic - Eye Eye exam: Present: PERRL, conjuntiva pink, sclera anicteric Pupils: Present: PERRL - ENT ENT exam: Present: mucous membranes moist - Neck Neck exam general surgery: Present: supple - Respiratory Respiratory exam: Present: decreased breath sounds - Cardiovascular Cardiovascular exam: Present: RRR, +S1, +S2 - GI/Abdominal GI/Abdominal exam: Present: soft. Absent: tenderness - Extremities Exam Extremities exam: Present: warm. Absent: pedal edema, tenderness - Neurological Exam Neurological exam: Present: alert, oriented X3, facial droop, speech deficit ( dysarthria). Absent: no focal deficits, strengths equal and symetr throughout ( left upper and lower extremity weakness) - Skin Skin exam: Present: dry, intact, warm Internal Medicine: Result - Labs CBC & Chem 7: 07/31/16 05:08 07/31/16 05:08 Labs: Short CBC 07/31/16 Range/Units 05:08 WBC 12.9 H (4.3-11.1) K/mcL Hgb 14.1 (11.5-15.4) g/dL Hct 43.2 (35.3-44.9) % Plt Count 307 (140-400) K/mcL Neutrophils # 10.4 H (1.6-8.9) K/mcL BMP 07/31/16 05:08 Sodium 144 Potassium 3.8 Chloride 109 Carbon Dioxide 24 BUN 20 Creatinine 1.03 Glucose 122 H Calcium 10.7 Cardiac Enzymes 07/31/16 07/31/16 Range/Units 05:08 11:03 Troponin I 0.16 H* 0.15 H* (0-0.03) ng/mL Liver Function 07/31/16 Range/Units 05:08 Total Bilirubin 0.8 (0.2-1.2) mg/dL AST 34 (5-34) Units/L ALT 19 (0-55) Units/L Alkaline Phosphatase 58 (38-126) Units/L Albumin 3.9 (3.5-5.0) g/dL - ABG Interpretation ABG results: PT/INR, D-dimer PT 13.4 Seconds (9.4-12.1) H 07/30/16 20:23 Consult Discharge Plan - Plan Referrals: NO,PCP [Primary Care Provider] - <Juan Francisco Esparza - Last Filed: 07/31/16 17:41> Date of Encounter: 07/31/16 - Constitutional Vitals: Temp Pulse Resp BP Pulse Ox 97.4 F L 77 18 149/90 94 07/31/16 17:38 07/31/16 17:38 07/31/16 17:38 07/31/16 17:38 07/31/16 17:38 Internal Medicine: Result - Labs CBC & Chem 7: 07/31/16 05:08 07/31/16 05:08 Labs: Short CBC 07/31/16 Range/Units 05:08 WBC 12.9 H (4.3-11.1) K/mcL Hgb 14.1 (11.5-15.4) g/dL Hct 43.2 (35.3-44.9) % Plt Count 307 (140-400) K/mcL Neutrophils # 10.4 H (1.6-8.9) K/mcL BMP 07/31/16 05:08 Sodium 144 Potassium 3.8 Chloride 109 Carbon Dioxide 24 BUN 20 Creatinine 1.03 Glucose 122 H Calcium 10.7 Cardiac Enzymes 07/31/16 07/31/16 Range/Units 05:08 11:03 Troponin I 0.16 H* 0.15 H* (0-0.03) ng/mL Liver Function 07/31/16 Range/Units 05:08 Total Bilirubin 0.8 (0.2-1.2) mg/dL AST 34 (5-34) Units/L ALT 19 (0-55) Units/L Alkaline Phosphatase 58 (38-126) Units/L Albumin 3.9 (3.5-5.0) g/dL - ABG Interpretation ABG results: PT/INR, D-dimer PT 13.4 Seconds (9.4-12.1) H 07/30/16 20:23 - Attending Attestation Pt admitted earlier today with acute CVA. She is currently being evaluated by cardiology and neurology. Exam Alert. R side weakness noted. Will continue current plan. MRI pending
[2016-07-31] MEDS ORDERED: *HR* Rivaroxaban 10 MG TABLET PO SCH (17:00)
[2016-07-31] MEDS ORDERED: *HR* Heparin 5,000 UNIT/ML VIAL SQ SCH (18:00)
[2016-08-01] MEDS: Pantoprazole 40 MG VIAL IVP SCH (06:24)
[2016-08-01] MEDS ORDERED: Diltiazem CD (24hr) 240 MG CAPSULE PO SCH (09:00)
--- NOTE | 2016-08-01 09:21 | Neurology Progress Note ---
Date of Encounter: 08/01/16 Time of Encounter: 09:20 Assessment and Plan (1) CVA (cerebral vascular accident) Current Visit: Yes Status: Acute right MCA M1 occlusion likely secondary to embolic phenomenon related atrial fibrillation. Size of stroke is substantial and appears mid sized. No cerebral hemorrhage. No midline shift. No cerebral edema. due to the substantial stroke size will recommend waiting for a week before initiation of anticoagulation therapy. Treatment plan discussed with her son Norberto and medical team. Patient's neurological prognosis discussed with her son. Left sided weakness likely to stay. Continue aspirin and statin therapy. Xarelto is to be started one week from today, if neurological condition remains stable. If there is any worsening of neurological status or development of headache, CT of head can be ordered prior to initiation of anticoagulation therapy. Will sign off at this time. Please call if any questions Qualifiers: CVA mechanism: unspecified Qualified Code(s): I63.9 - Cerebral infarction, unspecified Subjective Principal diagnosis: CVA Interval history: Patient seen and examined. Symptoms stable. More alert and dysarthric. Echocardiography study also completed. Normal LVEF of 70%. No significant valvular disease, no regional wall motion abnormality, No PFO. No thrombus noted. MRI of brain and MRA of brain completed. MR/MR head/brain wo con IMPRESSION: Acute ischemic insult involving right basal ganglia and anterior limb internal capsule with moderate hemorrhagic conversion. Punctate infarcts involving right temporal lobe operculum and cortex and superior right parietal lobe. Right M1 segment thrombosis. Objective - Constitutional Vitals: Temp Pulse Resp BP Pulse Ox 98.9 F 68 16 170/99 95 08/01/16 06:45 08/01/16 06:45 08/01/16 06:45 08/01/16 06:45 08/01/16 06:45 - Neurological Exam Sensorimotor examination: Present: other (Limited for neurological exam due to her current mental status and drowsiness, she will squeeze my hand on both sides , weaker on the left physician relations representative and weaker sensation of left upper extremity, positive Babinski sign on the left) Sensation intact: Present: other (Weaker on the left upper extremity) Mental Status Examination: Present: follows commands appropriately (Some somewhat), answers questions appropriately (Some what), drowsy, opens eyes to voice Cranial nerve examination: Present: PERRL Cranial Nerve Exam: facial droop: Left Results - Laboratory Findings CBC and BMP: 07/31/16 05:08 07/31/16 05:08 Abnormal lab findings: Abnormal lab results WBC 12.9 K/mcL (4.3-11.1) H 07/31/16 05:08 Neutrophils # 10.4 K/mcL (1.6-8.9) H 07/31/16 05:08 PT 13.4 Seconds (9.4-12.1) H 07/30/16 20:23 Est GFR (Non-Af Amer) 53 (> 60) L 07/31/16 05:08 Glucose 122 mg/dL (70-99) H 07/31/16 05:08 POC Glucose 100 (58-89) H 07/30/16 18:53 Calculated Osmolality 302 (280-300) H 07/31/16 05:08 Creatine Kinase 246 Units/L (29-168) H 07/31/16 11:03 Troponin I 0.15 ng/mL (0-0.03) H* 07/31/16 11:03 B-Natriuretic Peptide 573 pg/mL (0-100) H 07/30/16 19:24 LDL Cholesterol, Calc 109 mg/dL (0-99) H 07/31/16 05:08 Urine Clarity Cloudy (Clear) A 07/30/16 19:48 Urine Protein 30 mg/dL (Neg-Trace) H 07/30/16 19:48 Ur Squamous Epith Cells Many per lpf (None-Few) H 07/30/16 19:48 Consult Discharge Plan - Plan Referrals: NO,PCP [Primary Care Provider] -
[2016-08-01] MEDS: Aspirin 81 MG TAB.CHEW PO SCH (10:08)
[2016-08-01] MEDS: dilTIAZem HCl 60 MG TABLET PO SCH ×3 (10:09→21:25)
[2016-08-01] MEDS: Acetaminophen 325 MG TABLET PO PRN ×2 (14:47→21:25)
--- NOTE | 2016-08-01 16:19 | Internal Med Progress Note ---
Date of Encounter: 08/01/16 Time of Encounter: 11:30 - Assessment and plan (1) CVA (cerebral vascular accident) Current Visit: Yes Status: Acute Assessment and plan: MRI shows hemorrhagic conversion. No new neurologic symptoms. Appreciate neuro input. Anticoagulation to start one week from today. Qualifiers: CVA mechanism: embolism Precerebral and cerebral artery: middle cerebral artery Laterality of affected vessel: left Qualified Code(s): I63.412 - Cerebral infarction due to embolism of left middle cerebral artery (2) Paroxysmal atrial fibrillation Current Visit: Yes Status: Chronic Assessment and plan: Currently sinus rhythm with PACs. Continue ASA and media monitor. (3) Hypertension Current Visit: Yes Status: Chronic Assessment and plan: Permissive hypertension. Qualifiers: Hypertension type: essential hypertension Qualified Code(s): I10 - Essential (primary) hypertension (4) Hypertrophic cardiomyopathy Current Visit: Yes Status: Chronic Assessment and plan: Echo: EF preserved 70%, stable HOCM. Mild diastolic dysfunction. No evidence of intracardiac shunting with agitated saline contrast. No change at this time. (5) Left hemiplegia Current Visit: Yes Status: Acute Assessment and plan: PT/OT. (6) Hyperlipidemia Current Visit: Yes Status: Chronic Assessment and plan: Continue statin. Qualifiers: Hyperlipidemia type: mixed hyperlipidemia Qualified Code(s): E78.2 - Mixed hyperlipidemia (7) Dysarthria due to cerebrovascular accident Current Visit: Yes Status: Acute Assessment and plan: Speech therapy. (8) Dysphagia due to recent cerebral infarction Current Visit: Yes Status: Acute Assessment and plan: Speech therapy. - Subjective Interval history: Ms. Ball is currently admitted for acute CVA with moderate hemorraghic conversion. She is high risk due to potential for worsening neurologic status. Ms. Ball is alert. She is oriented as well. Speech slurred but seems better than yesterday. Family at bedside. No fever or chills. No cough or GI symptoms. - Constitutional Vitals: Temp Pulse Resp BP Pulse Ox 98.1 F 59 16 151/108 97 08/01/16 15:59 08/01/16 15:59 08/01/16 15:59 08/01/16 15:59 08/01/16 15:59 General appearance: Present: cooperative, A&O X 3, answers questions appropriately (Patient seems to use correct words to answer but canot say them clearly from dysarthria. ) - Head Head exam: Present: normocephalic - Eye Eye exam: Present: conjuntiva pink - ENT ENT exam: Present: mucous membranes dry - Respiratory Respiratory exam: Present: decreased breath sounds, CTAB. Absent: rhonchi, wheezes - Cardiovascular Cardiovascular exam: Present: irregular rhythm. Absent: tachycardia - GI/Abdominal GI/Abdominal exam: Present: soft. Absent: tenderness - Extremities Exam Extremities exam: Present: warm. Absent: pedal edema, tenderness - Neurological Exam Neurological exam: Present: alert, motor sensory deficit, oriented X3, speech deficit - Skin Skin exam: Present: warm. Absent: rash Internal Medicine: Result - Labs CBC & Chem 7: 07/31/16 05:08 07/31/16 05:08 - ABG Interpretation ABG results: PT/INR, D-dimer PT 13.4 Seconds (9.4-12.1) H 07/30/16 20:23 Consult Discharge Plan - Plan Referrals: NO,PCP [Primary Care Provider] -
[2016-08-02] MEDS: dilTIAZem HCl 60 MG TABLET PO SCH ×4 (04:57→22:31)
[2016-08-02] MEDS: Aspirin 81 MG TAB.CHEW PO SCH (09:07)
--- NOTE | 2016-08-02 13:50 | Carotid Imaging Report ---
Carotid Duplex Patient Name:Isidra Ball Order Number:[id number] Procedure Date:08/01/2016 Date:4Age:71 yrs Gender:Female Lt BP:172 / 96 mmHg Rt.BP:180 / 92 mmHgHeart Rate: Location:[facility] Room #: 2NE 34 Mushroom Grower:Azra Figueroa Referring MD:Marta Castro DO custom designer:None Reading MD:Jeremy Garza MD Study Quality:Good Primary Indications:Left sided weakness Secondary Indications: Dysarthria Risk Factors Yes/No Hypercholesterolemia Yes Impressions: Findings: Bilateral carotid system is essentially normal. Findings Carotid Duplex: Mckinnon scale imaging combined with Doppler flow analysis suggests normal findings on the right. Left: There is nonstenotic plaque in the left bifurcation. There is irregular calcified plaque. Prior Study: No prior study available for comparison. Carotid Results Right PSV EDV Assessment Proximal CCA 85 14 Normal Mid CCA 66 11 Normal Distal CCA 79 17 Normal Bifurcation 31 10 Normal Proximal ICA 35 7 Normal Mid ICA 27 10 Normal Distal ICA 46 17 Normal ECA 81 10 Normal Vertebral Artery 66 25 Normal Left PSV EDV Assessment Proximal CCA 85 13 Normal Mid CCA 63 15 Normal Distal CCA 54 18 Normal Bifurcation 56 15 Non Stenotic Plaque Proximal ICA 53 15 Normal Mid ICA 73 28 Normal Distal ICA 64 22 Normal ECA 60 8 Normal Vertebral Artery 38 8 Normal Ratio's Right ICA/CCA Ratio: 0.69 ICA/CCA Values: 46/66 Left ICA/CCA Ratio: 1.15 ICA/CCA Values: 73/63 Updated by Jeremy Garza MD on 08/02/2016 1:44:57 PM electronically signed on 08/02/2016 1:45:10 PM with status of Final
--- NOTE | 2016-08-02 16:13 | Internal Med Progress Note ---
Date of Encounter: 08/02/16 Time of Encounter: 10:30 - Assessment and plan (1) CVA (cerebral vascular accident) Current Visit: Yes Status: Acute Assessment and plan: MRI shows hemorrhagic conversion. No new neurologic symptoms. To start anticoagulation next Thursday. Qualifiers: CVA mechanism: embolism Precerebral and cerebral artery: middle cerebral artery Laterality of affected vessel: left Qualified Code(s): I63.412 - Cerebral infarction due to embolism of left middle cerebral artery (2) Paroxysmal atrial fibrillation Current Visit: Yes Status: Chronic Assessment and plan: Currently sinus rhythm with PACs. Continue ASA and monitoring engineer. (3) Hypertension Current Visit: Yes Status: Chronic Assessment and plan: Permissive hypertension. Qualifiers: Hypertension type: essential hypertension Qualified Code(s): I10 - Essential (primary) hypertension (4) Hypertrophic cardiomyopathy Current Visit: Yes Status: Chronic Assessment and plan: Echo: EF preserved 70%, stable HOCM. Mild diastolic dysfunction. No evidence of intracardiac shunting with agitated saline contrast. No change at this time. (5) Left hemiplegia Current Visit: Yes Status: Acute Assessment and plan: PT/OT. Has been accepted to rehab in [place]. Anticipate d/c Thursday. (6) Dysarthria due to cerebrovascular accident Current Visit: Yes Status: Acute Assessment and plan: Speech therapy. (7) Dysphagia due to recent cerebral infarction Current Visit: Yes Status: Acute Assessment and plan: Speech therapy. (8) Hyperlipidemia Current Visit: Yes Status: Chronic Assessment and plan: Continue statin. Qualifiers: Hyperlipidemia type: mixed hyperlipidemia Qualified Code(s): E78.2 - Mixed hyperlipidemia - Subjective Interval history: Ms. Ball is currently admitted for acute CVA with moderate hemorraghic conversion. She is high risk due to potential for worsening neurologic status. Ms. Ball is alert and appears a little easier to understand today. Still with L hemiplegia. No cough. No fever or chills. No GI symptoms. No headache. Was seen by PT/OT. Has been accepted to rehab in [place]. - Constitutional Vitals: Temp Pulse Resp BP Pulse Ox 97.7 F 83 17 160/139 97 08/02/16 07:00 08/02/16 15:00 08/02/16 15:00 08/02/16 15:00 08/02/16 15:00 General appearance: Present: cooperative, A&O X 3, answers questions appropriately (Patient seems to use correct words to answer but canot say them clearly from dysarthria. ) - Head Head exam: Present: normocephalic - Eye Eye exam: Present: conjuntiva pink - ENT ENT exam: Present: mucous membranes dry - Respiratory Respiratory exam: Present: decreased breath sounds, CTAB - Cardiovascular Cardiovascular exam: Present: bradycardia, irregular rhythm - GI/Abdominal GI/Abdominal exam: Present: soft. Absent: tenderness - Extremities Exam Extremities exam: Present: warm. Absent: pedal edema, tenderness - Neurological Exam Neurological exam: Present: alert, motor sensory deficit, oriented X3, facial droop, speech deficit Additional comments: Essentially unchanged. Speech may be a little better. - Psychiatric Psychiatric exam: Present: normal affect, normal mood - Skin Skin exam: Present: warm. Absent: rash Internal Medicine: Result - Labs CBC & Chem 7: 07/31/16 05:08 07/31/16 05:08 - ABG Interpretation ABG results: PT/INR, D-dimer PT 13.4 Seconds (9.4-12.1) H 07/30/16 20:23 - VTE Documentation of Mechanical Device: Intermittent pneumatic compression device Consult Discharge Plan - Plan Referrals: NO,PCP [Primary Care Provider] -
[2016-08-03] MEDS: dilTIAZem HCl 60 MG TABLET PO SCH ×4 (06:39→21:53)
[2016-08-03 08:07] LABS: Hematocrit 42.6 % (35.3-44.9); Hemoglobin 13.6 g/dL (11.5-15.4); Mean Corpuscular HGB Conc 31.9 g/dL (31.6-35.5); Mean Corpuscular Hemoglobin 28.5 pg (28.0-33.3); Mean Corpuscular Volume 89.1 fL (83.0-100.0); Mean Platelet Volume 10.5 fL (9.4-12.4); Platelet Count 177 K/mcL (140-400); Red Blood Count 4.78 M/mcL (3.82-4.97)
[2016-08-03 08:17] LABS: BUN/Creatinine Ratio 23 (6-26); Blood Urea Nitrogen 20 mg/dL (7-20); Calcium 10.2 mg/dL (8.6-10.8); Carbon Dioxide 21 mEq/L (19-29); Chloride 111 mEq/L (98-109); Glucose 118 mg/dL (70-99); Magnesium 1.8 mg/dL (1.6-2.6); Osmolality,Calculated 302 (280-300); Potassium 3.4 mEq/L (3.5-4.5); Sodium 144 mEq/L (136-145); eGFR For African Americans > 60 (> 60); eGFR For Non-African Americans > 60 (> 60)
[2016-08-03] MEDS: Aspirin 81 MG TAB.CHEW PO SCH (10:42)
--- NOTE | 2016-08-03 15:24 | Internal Med Progress Note ---
Date of Encounter: 08/03/16 Time of Encounter: 09:15 - Assessment and plan (1) CVA (cerebral vascular accident) Current Visit: Yes Status: Acute Assessment and plan: MRI shows hemorrhagic conversion. No new neurologic symptoms. To start anticoagulation next Thursday. Plan for rehab. Qualifiers: CVA mechanism: embolism Precerebral and cerebral artery: middle cerebral artery Laterality of affected vessel: left Qualified Code(s): I63.412 - Cerebral infarction due to embolism of left middle cerebral artery (2) Paroxysmal atrial fibrillation Current Visit: Yes Status: Chronic Assessment and plan: Currently sinus rhythm with PACs. Continue ASA and boilermaker apprentice. Start anticoagulation next Thursday. (3) Hypertension Current Visit: Yes Status: Chronic Assessment and plan: Permissive hypertension. Monitoring closely. Qualifiers: Hypertension type: essential hypertension Qualified Code(s): I10 - Essential (primary) hypertension (4) Hypertrophic cardiomyopathy Current Visit: Yes Status: Chronic Assessment and plan: Echo: EF preserved 70%, stable HOCM. Mild diastolic dysfunction. No evidence of intracardiac shunting with agitated saline contrast. No change at this time. (5) Left hemiplegia Current Visit: Yes Status: Acute Assessment and plan: PT/OT. Has been accepted to rehab in [place]. Anticipate d/c Thursday. (6) Dysarthria due to cerebrovascular accident Current Visit: Yes Status: Acute Assessment and plan: Speech therapy. (7) Dysphagia due to recent cerebral infarction Current Visit: Yes Status: Acute Assessment and plan: Speech therapy. (8) Hyperlipidemia Current Visit: Yes Status: Chronic Assessment and plan: Continue statin. Qualifiers: Hyperlipidemia type: mixed hyperlipidemia Qualified Code(s): E78.2 - Mixed hyperlipidemia (9) Hypokalemia Current Visit: Yes Status: Acute Assessment and plan: Replace. - Subjective Interval history: Ms. Ball is currently admitted for acute CVA with moderate hemorraghic conversion. She is high risk due to potential for worsening neurologic status. Ms. Ball is feeling OK. No pain. Feels like speech continues to improve. Family to visit later. No fever or chills. Occ wheeze in chest. No dyspnea but has worn oxygen off and on. No GI symptoms. - Constitutional Vitals: Temp Pulse Resp BP Pulse Ox 98.3 F 71 25 146/93 98 08/03/16 05:21 08/03/16 07:30 08/03/16 07:30 08/03/16 07:30 08/03/16 07:30 General appearance: Present: cooperative, A&O X 3, answers questions appropriately (Patient seems to use correct words to answer but canot say them clearly from dysarthria. ) - Head Head exam: Present: normocephalic - Eye Eye exam: Present: conjuntiva pink - ENT ENT exam: Present: mucous membranes dry - Respiratory Respiratory exam: Present: decreased breath sounds. Absent: wheezes - Cardiovascular Cardiovascular exam: Present: irregular rhythm. Absent: tachycardia - GI/Abdominal GI/Abdominal exam: Present: soft. Absent: tenderness - Extremities Exam Extremities exam: Present: warm. Absent: pedal edema - Neurological Exam Neurological exam: Present: alert, motor sensory deficit, oriented X3, facial droop, speech deficit - Psychiatric Psychiatric exam: Present: normal affect, normal mood - Skin Skin exam: Present: warm. Absent: rash Internal Medicine: Result - Labs CBC & Chem 7: 08/03/16 07:05 08/03/16 07:05 Labs: Short CBC 08/03/16 Range/Units 07:05 WBC 12.5 H (4.3-11.1) K/mcL Hgb 13.6 (11.5-15.4) g/dL Hct 42.6 (35.3-44.9) % Plt Count 177 (140-400) K/mcL [facility] 08/03/16 07:05 Sodium 144 Potassium 3.4 L Chloride 111 H Carbon Dioxide 21 BUN 20 Creatinine 0.86 Glucose 118 H Calcium 10.2 - ABG Interpretation ABG results: PT/INR, D-dimer PT 13.4 Seconds (9.4-12.1) H 07/30/16 20:23 - VTE Documentation of Mechanical Device: Intermittent pneumatic compression device Consult Discharge Plan - Plan Referrals: NO,PCP [Primary Care Provider] -
--- NOTE | 2016-08-03 20:16 | Electrocardiograph Report ---
[address] [place] [address] Test Date: 2016-08-02 Pat Name: Isidra Ball Department: 111 Room: 2NE34 Gender: F Taxicab Starter: NICOLE : 1945 Requested By: Juan Francisco Esparza Order Number: [id number] Reading MD: Paco Franco MD Measurements Intervals [place] Rate: 53 P: 13 AR: 203 QRS: 9 QRSD: 89 T: 102 QT: 475 QTc: 458 Interpretive Statements SINUS BRADYCARDIA LEFT VENTRICULAR HYPERTROPHY LATERAL ISCHEMIA Electronically Signed On 08-03-2016 20:14:43 EDT by Paco Franco MD
--- NOTE | 2016-08-03 20:41 | Electrocardiograph Report ---
[place] [address] Test Date: 2016-08-02 Pat Name: Isidra Ball Department: 111 Room: 2N4 Gender: F [employer] Icer And Packer: [id number] : 1945 Requested By: Juan Francisco Esparza Order Number: [id number] Reading MD: Paco Franco MD Measurements Intervals [place] Rate: 82 P: 42 AK: 194 QRS: 7 QRSD: 95 T: 71 QT: 383 QTc: 422 Interpretive Statements SINUS RHYTHM Electronically Signed On 08-03-2016 20:40:28 EDT by Paco Franco MD
[2016-08-04] MEDS: dilTIAZem HCl 60 MG TABLET PO SCH ×3 (04:22→21:24)
[2016-08-04 05:38] LABS: Hematocrit 44.3 % (35.3-44.9); Hemoglobin 14.4 g/dL (11.5-15.4); Mean Corpuscular HGB Conc 32.5 g/dL (31.6-35.5); Mean Corpuscular Hemoglobin 29.3 pg (28.0-33.3); Mean Platelet Volume 10.7 fL (9.4-12.4); Platelet Count 174 K/mcL (140-400); Red Blood Count 4.92 M/mcL (3.82-4.97); Red Cell Distribution Width 13.8 % (11.5-14.5)
[2016-08-04 05:45] LABS: BUN/Creatinine Ratio 25 (6-26); Blood Urea Nitrogen 21 mg/dL (7-20); Calcium 10.4 mg/dL (8.6-10.8); Carbon Dioxide 24 mEq/L (19-29); Chloride 111 mEq/L (98-109); Glucose 124 mg/dL (70-99); Osmolality,Calculated 302 (280-300); Potassium 3.6 mEq/L (3.5-4.5); Sodium 144 mEq/L (136-145); eGFR For African Americans > 60 (> 60); eGFR For Non-African Americans > 60 (> 60)
--- NOTE | 2016-08-04 08:24 | Venous Imaging Report ---
LE Venous Duplex Patient Name:Isidra Ball Order Number:[id number] Procedure Date:08/03/2016 Date:4Age:71 yrs Gender:Female Location:[facility] Room #: 2NE34 Personnel Clerks Supervisor:Cheryl Ortiz RVT Referring MD:Juan Francisco Esparza DO director of physical security:None Reading MD:Jeremy Garza MD Primary Indications:edema post CVA Secondary Indications: Risk Factors Yes/No Anticoagulants Yes Hx of DVT No Impressions: Lower extremity abnormal deep exam: left superficial femoral through tibial vein demonstrates acute thrombosis. Recommendations: Critical findings reported to Nurse in person by Cheryl Ortiz RVT. Findings Venous Duplex Results: Left: There is an acute occlusive thrombus seen in the left superficial femoral. There is an acute occlusive thrombus seen in the left popliteal. There is an acute occlusive thrombus seen in the left peroneal. Prior Study: No prior study available for comparison. Lower Extremity Venous Duplex Side Vein Compress Spontaneous Flow Augment Diameter (cm) Depth (cm) Right Distal Iliac Normal Yes Phasic Yes Right Common Femoral Normal Yes Phasic Yes Right Superficial Femoral Normal Yes Phasic Yes Right Popliteal Normal Yes Phasic Yes Right Posterior Tibial Normal Yes Phasic Yes Right Peroneal Normal Yes Phasic Yes Right [place]aphenous Normal Yes Phasic Yes Left Distal Iliac Normal Yes Phasic Yes Left Common Femoral Normal Yes Phasic yes Left Superficial Femoral None no Absent no Left Popliteal None no Absent no Left Posterior Tibial Normal Yes Phasic Yes Left Peroneal None no Absent no Left [place]aphenous Normal Yes Phasic Yes Updated by Jeremy Garza MD on 08/04/2016 8:19:23 AM electronically signed on 08/04/2016 8:19:44 AM with status of Final
[2016-08-04 08:40] LABS: INR 1.3; Prothrombin Time 13.9 Seconds (9.4-12.1)
[2016-08-04 08:42] LABS: Activated Partial Thrombo Time 26.2 Seconds (26.0-36.0)
[2016-08-04] MEDS: Aspirin 81 MG TAB.CHEW PO SCH (09:13)
[2016-08-04] MEDS ORDERED: Heparin 1,000 UNITS/500 mL NS 500 ML ONE (11:14)
[2016-08-04] MEDS ORDERED: Nitroglycerin 1 INCH/GM PACKET TP ONE (11:51)
--- NOTE | 2016-08-04 15:09 | Internal Med Progress Note ---
Date of Encounter: 08/04/16 Time of Encounter: 15:09 - Assessment and plan (1) Pulmonary embolism with acute cor pulmonale Current Visit: Yes Status: Acute Assessment and plan: Pt unable to be anticoagulated. IVC filter to be placed. Transfer to ICU for further monitoring. Qualifiers: Pulmonary embolism type: saddle Chronicity: acute Qualified Code(s): I26.02 - Saddle embolus of pulmonary artery with acute cor pulmonale (2) Deep vein thrombosis (DVT) of femoral vein of left lower extremity Current Visit: Yes Status: Acute Assessment and plan: To have IVC filter placed. Qualifiers: Chronicity: acute Qualified Code(s): I82.412 - Acute embolism and thrombosis of left femoral vein (3) CVA (cerebral vascular accident) Current Visit: Yes Status: Acute Assessment and plan: MRI shows hemorrhagic conversion. Neurologically unchanged. Plan for rehab at discharge. Qualifiers: CVA mechanism: embolism Precerebral and cerebral artery: middle cerebral artery Laterality of affected vessel: left Qualified Code(s): I63.412 - Cerebral infarction due to embolism of left middle cerebral artery (4) Paroxysmal atrial fibrillation Current Visit: Yes Status: Chronic Assessment and plan: Currently sinus rhythm with PACs. On ASA. Anticoagulation can be started on . (5) Hypertension Current Visit: Yes Status: Chronic Assessment and plan: Permissive hypertension. Monitoring closely. Qualifiers: Hypertension type: essential hypertension Qualified Code(s): I10 - Essential (primary) hypertension (6) Hypertrophic cardiomyopathy Current Visit: Yes Status: Chronic Assessment and plan: Echo: EF preserved 70%, stable HOCM. Mild diastolic dysfunction. No evidence of intracardiac shunting with agitated saline contrast. No change at this time. (7) Left hemiplegia Current Visit: Yes Status: Acute Assessment and plan: PT/OT. Has been accepted to rehab in [place]. Anticipate d/c Thursday. (8) Dysarthria due to cerebrovascular accident Current Visit: Yes Status: Acute Assessment and plan: Speech therapy. (9) Dysphagia due to recent cerebral infarction Current Visit: Yes Status: Acute Assessment and plan: Speech therapy. (10) Hyperlipidemia Current Visit: Yes Status: Chronic Assessment and plan: Continue statin. Qualifiers: Hyperlipidemia type: mixed hyperlipidemia Qualified Code(s): E78.2 - Mixed hyperlipidemia (11) Hypokalemia Current Visit: Yes Status: Acute Assessment and plan: Improved. - Subjective Interval history: Ms. Ball is currently admitted for acute CVA with moderate hemorraghic conversion. She is high risk due to potential for worsening neurologic status. Ms. Ball was feeling OK this AM. No GI symptoms. No cough. No CP or SOB early this AM. Ms. Ball was found to have L leg DVT last evening on venous duplex done for surveillance of veins, not symptoms. She has been unable to be anticoagulated due to hemorrhagic conversion of stroke. EPCDs were ordered. Vascular surgery [facility] was contacted (Dr. Garza) and recommended consult with IR in the morning as it would be best for her to have a temporary IVC filter. She was continued at bedrest. This AM IR was consulted and she was taken down for IVC filter. While waiting for the procedure she started coughing and noticed some discomfort in her L jaw and neck. She refused the IVC filter and was brought back to room. She denies shortness of breath. EKG done and reviewed with cardiology. Stat CTA of chest ordered. CT returned with significant clot burden in pulmonary arteries. She cannot be anticoagulated due to her CVA. Pulmonary consulted and pt to be transferred to ICU. She needs IVC filter placed and IR was called. Pt discussed with ICU team. At this time she is going to IR and then to ICU. Daughter has been updated throughout the day. - Constitutional Vitals: Temp Pulse Resp BP Pulse Ox 97.6 F 57 22 131/97 94 08/04/16 12:00 08/04/16 12:00 08/04/16 12:00 08/04/16 12:00 08/04/16 12:00 General appearance: Present: cooperative, A&O X 3, answers questions appropriately (Patient seems to use correct words to answer but canot say them clearly from dysarthria. ) - Head Head exam: Present: normocephalic - Eye Eye exam: Present: conjuntiva pink - ENT ENT exam: Present: mucous membranes dry - Respiratory Respiratory exam: Present: decreased breath sounds, CTAB. Absent: rhonchi, wheezes - Cardiovascular Cardiovascular exam: Present: irregular rhythm. Absent: systolic murmur, tachycardia - GI/Abdominal GI/Abdominal exam: Present: soft. Absent: tenderness - Extremities Exam Extremities exam: Present: warm. Absent: tenderness - Neurological Exam Neurological exam: Present: alert, motor sensory deficit, facial droop, speech deficit - Skin Skin exam: Present: warm. Absent: rash Internal Medicine: Result - Labs CBC & Chem 7: 08/04/16 04:49 08/04/16 04:49 Labs: Short CBC 08/04/16 Range/Units 04:49 WBC 12.5 H (4.3-11.1) K/mcL Hgb 14.4 (11.5-15.4) g/dL Hct 44.3 (35.3-44.9) % Plt Count 174 (140-400) K/mcL BMP 08/04/16 04:49 Sodium 144 Potassium 3.6 Chloride 111 H Carbon Dioxide 24 BUN 21 H Creatinine 0.85 Glucose 124 H Calcium 10.4 - ABG Interpretation ABG results: PT/INR, D-dimer PT 13.9 Seconds (9.4-12.1) H 08/04/16 08:22 - Impressions Impressions Chest CTA 08/04/16 12:05 IMPRESSION: 1. Acute pulmonary emboli with a mild nonocclusive main pulmonary artery saddle embolus and severe bilateral near occlusive saddle emboli of the right and left pulmonary arteries with extension to all of the lobar pulmonary arteries. There is evidence of right heart dysfunction. 2. Nonspecific bilateral mild lower lobe subpleural opacities which could represent atelectasis or possible developing pulmonary infarcts. Critical results were called by Dr. Carl Gramajo MD to Juan Francisco Esparza on 08/04/2016 at 14:27. D/ / 08/04/2016 14:52:21 Carl Gramajo MD / [facility] Interpreting Provider: Carl Gramajo MD - VTE Documentation of Mechanical Device: Intermittent pneumatic compression device Consult Discharge Plan - Plan Referrals: NO,PCP [Primary Care Provider] -
--- NOTE | 2016-08-04 15:59 | IR Procedure Note ---
Date of procedure: 08/04/16 Consent Obtained: Written consent Timeout: Correct patient and procedure verified, Correct site verified, Time out performed, Skin prep completed Indications: DVT, PE Procedure Performed: IVC filter Site/Technique: rt femoral access Results/Findings: filter wel deployed in infrarenal IVC Estimated blood loss (cc): 2 Complications: None; Tolerated procedure well Post Procedure Treatment Plan: dc to floor.
--- NOTE | 2016-08-04 16:44 | Pulmonology Consult Note ---
Date of Encounter: 08/04/16 Time of Encounter: 16:36 Assessment and Plan (1) Pulmonary embolism with acute cor pulmonale Current Visit: Yes Status: Acute IVC filter placed. Transferred to ICU for closer monitoring. Saturating well on 2L nasal cannula at this time. Qualifiers: Pulmonary embolism type: saddle Chronicity: acute Qualified Code(s): I26.02 - Saddle embolus of pulmonary artery with acute cor pulmonale (2) CVA (cerebral vascular accident) Current Visit: Yes Status: Acute Ischemic stroke with hemorrhagic conversion. Left sided hemiplegia with associated dysarthria and dysphagea. The patient was due to be moved to [place] for inpatient rehab, but had a PE prior to IVC placement this AM. Speech, occupational, and physical therapy consulted. Qualifiers: CVA mechanism: embolism Precerebral and cerebral artery: middle cerebral artery Laterality of affected vessel: left Qualified Code(s): I63.412 - Cerebral infarction due to embolism of left middle cerebral artery (3) Deep vein thrombosis (DVT) of femoral vein of left lower extremity Current Visit: Yes Status: Acute IVC filter in place. Per interventional radiology: well deployed in infrarenal IVC. Qualifiers: Chronicity: acute Qualified Code(s): I82.412 - Acute embolism and thrombosis of left femoral vein (4) Hyperlipidemia Current Visit: Yes Status: Chronic continue statin Qualifiers: Hyperlipidemia type: mixed hyperlipidemia Qualified Code(s): E78.2 - Mixed hyperlipidemia (5) Hypertension Current Visit: Yes Status: Chronic Permissive hyptertension at this time. Qualifiers: Hypertension type: essential hypertension Qualified Code(s): I10 - Essential (primary) hypertension (6) Paroxysmal atrial fibrillation Current Visit: Yes Status: Chronic In sinus rhythm at this time. Continue to monitor. Continue home medications. History of Present Illness Consult date: 08/04/16 Requesting physician: Juan Francisco Esparza Reason for consult: pulmonary embolism Chief complaint: dyspnea History of present illness: This is a 71 year old female with PMH of CVA, paroxysmal atrial fibrillation, HTN, hypertrophic cardiomyopathy, hyperlipidemia, and sarcoidosis who presented to [facility] [place] [facility] on 07/30 for left sided weakness and difficulty speaking. She was found to have an ischemic stroke. Subsequently this converted to a hemorragic stroke. She did not receive any anticoagulation. She was found to have DVT on and was scheduled for IVC filter placement 08/04. While awaiting placement of her IVC filter she began to have neck pain and feel short of breath and decided she did not want the filter placed anymore. Further evaluation demonstrated that the patient had bilateral PEs. She was taking back to interventional radiology and an IVC filter was placed. She was not anticoagulated due to the conversion of her ischemic stroke to hemorrhagic. She was transferred to the ICU for closer monitoring and is currently saturating at 95% on 2L NC. Past Med Surg Social Fam HX - Past Medical History Medical history: atrial fibrillation (Paroxysmal), cardiomyopathy (hypertrophic obstructive cardiomyopathy.), hyperlipidemia, hypertension, myocardial infarction (2014. No significant stenosis on heart cath in 2016.), other ( Sarcoidosis) Psychiatric history: no psych history - Past Surgical History Surgical History: cholecystectomy, hysterectomy, other (exploratory laproscopy) - Social History Smoking Status: Never smoker Smokeless Tobacco Status: No Alcohol use: none Drug use: none - Family History Mother Living Status: Hx Family Cardiac Disorders: Yes (HTN) Hx Family Neurologic Disorders: Yes (Stroke, Culp's palsy) Father History Unknown: Yes Medications and Allergies Diltiazem HCl [Diltiazem 24Hr Cd] 240 mg PO DAILY 02/17/16 [History] Fenofibrate [Lofibra] 160 mg PO DAILY 02/17/16 [History] Metoprolol [Lopressor] 50 mg PO BID 02/17/16 [History] Sotalol [Betapace] 80 mg PO DAILY 02/17/16 [History] Atorvastatin Calcium [Lipitor] 20 mg PO HS 07/30/16 [History] Allergies Penicillins Allergy (Verified 02/17/16 19:46) Hives Sulfa (Sulfonamide Antibiotics) Allergy (Verified 02/17/16 19:46) Hives All Systems: A 10-system review of systems was performed and is negative for pertinent findings except as documented above in the HPI. Review of Systems: Left sided tingling in her neck - Respiratory Respiratory: dyspnea (mild) Physical Examination Vital Signs: Vital Signs, Last 4 Hours Temp Pulse Resp BP Pulse Ox 08/04/16 15:24 98.9 F 66 18 132/106 95 General appearance: no acute distress Eyes: nonicteric ENT: oropharynx moist Neck: supple Effort: normal Auscultation: bilateral: diminished breath sounds Cardiovascular: regular rate and rhythm Gastrointestinal: normoactive bowel sounds, soft, non-tender, non-distended Integumentary: normal Extremities: no cyanosis other (left sided hemiplegia with dysarthria, symmetric sensation to temperature and deep touch, left sided facial droop) mood appropriate Results - Laboratory Findings CBC and BMP: 08/04/16 04:49 08/04/16 04:49 PT/INR, D-dimer PT 13.9 Seconds (9.4-12.1) H 08/04/16 08:22 Abnormal lab findings: Abnormal lab results WBC 12.5 K/mcL (4.3-11.1) H 08/04/16 04:49 Neutrophils # 10.4 K/mcL (1.6-8.9) H 07/31/16 05:08 PT 13.9 Seconds (9.4-12.1) H 08/04/16 08:22 Chloride 111 mEq/L (98-109) H 08/04/16 04:49 BUN 21 mg/dL (7-20) H 08/04/16 04:49 Glucose 124 mg/dL (70-99) H 08/04/16 04:49 POC Glucose 100 (58-89) H 07/30/16 18:53 Calculated Osmolality 302 (280-300) H 08/04/16 04:49 Creatine Kinase 246 Units/L (29-168) H 07/31/16 11:03 Troponin I 0.15 ng/mL (0-0.03) H* 07/31/16 11:03 B-Natriuretic Peptide 573 pg/mL (0-100) H 07/30/16 19:24 LDL Cholesterol, Calc 109 mg/dL (0-99) H 07/31/16 05:08 Urine Clarity Cloudy (Clear) A 07/30/16 19:48 Urine Protein 30 mg/dL (Neg-Trace) H 07/30/16 19:48 Ur Squamous Epith Cells Many per lpf (None-Few) H 07/30/16 19:48 - Clinical Findings Intake & Output: Intake & Output 08/04/16 08/04/16 08/04/16 07:59 15:59 23:59 Intake Total 0 / 0 0 / 0 Output Total 250 / 250 Balance -250 / -250 0 / 0 Weight 86.6 kg Consult Discharge Plan - Plan Referrals: NO,PCP [Primary Care Provider] - - Attending Attestation I examined this patient and my medical decision-making was reviewed with the SLURRY CONTROL OPERATOR HELPER/PA/Advanced Practice Nurse/Resident Physician. I agree with the documented findings, disposition and treatment plan as described except to the extent set forth below.
[2016-08-04] MEDS ORDERED: Ondansetron 4 MG/2 ML VIAL IVP PRN (17:32)
[2016-08-04] MEDS ORDERED: Acetaminophen 325 MG TABLET PO PRN (17:32)
[2016-08-04] MEDS ORDERED: NON-FORMULARY MEDICATION 1 EACH EACH (Atorvastatin Calcium [Lipitor] 20 MG) PO SCH (21:00)
--- NOTE | 2016-08-04 23:24 | Event Note ---
Date of Encounter: 08/04/16 Time of Encounter: 23:10 called that patient was complaining of right flank pain extending to her groin, she recently had IVC filter placed and the right groin entry was used, local exam did not suggest a hematoma in the groin area. she may have had a retroperitoneal bleed as a complication of the procedure. We will order abdomino -pelvic CT for evaluation. Dw patient and she is in agreement knowing that if findings were positive our interventions were limited due to his multiple active problems; brain hemorrhagic conversion of ischemic stroke, DVT/PE.
[2016-08-05] MEDS: *HR* OxyCODONE/APAP 5/325 TABLET PO PRN ×2 (00:33→06:16)
[2016-08-05] MEDS: dilTIAZem HCl 60 MG TABLET PO SCH ×4 (03:56→21:34)
[2016-08-05 06:19] LABS: Alanine Aminotransferase 36 Units/L (0-55); Albumin 3.4 g/dL (3.5-5.0); Alkaline Phosphatase 67 Units/L (38-126); Aspartate Amino Transferase 44 Units/L (5-34); BUN/Creatinine Ratio 31 (6-26); Bilirubin,Total 0.9 mg/dL (0.2-1.2); Blood Urea Nitrogen 29 mg/dL (7-20); Calcium 10.7 mg/dL (8.6-10.8); Carbon Dioxide 22 mEq/L (19-29); Chloride 111 mEq/L (98-109); Globulin 3.3 g/dL (2.4-3.5); Glucose 139 mg/dL (70-99); Osmolality,Calculated 306 (280-300); Potassium 3.7 mEq/L (3.5-4.5); Sodium 144 mEq/L (136-145); Total Protein 6.7 g/dL (6.0-8.3); eGFR For African Americans > 60 (> 60); eGFR For Non-African Americans 59 (> 60)
--- NOTE | 2016-08-05 08:51 | Pulmonology Progress Note ---
Date of Encounter: 08/05/16 Time of Encounter: 08:10 Assessment and Plan (1) Pulmonary embolism with acute cor pulmonale Current Visit: Yes Status: Acute IVC filter placed yesterday. Saturating well on 2L. Unable to anticoagulate at the this time due to hemorrhagic conversion of previous ischemic stroke. Transfer out of ICU this morning and monitor 1-2 more days before transfer to inpatient rehabilitation. Qualifiers: Pulmonary embolism type: saddle Chronicity: acute Qualified Code(s): I26.02 - Saddle embolus of pulmonary artery with acute cor pulmonale (2) CVA (cerebral vascular accident) Current Visit: Yes Status: Acute Ischemic stroke with hemorrhagic conversion. Left sided hemiplegia with associated dysarthria and dysphagea. The patient was due to be moved to [place] for inpatient rehab 08/04 but subsequently had a PE before she was able to be discharged. Speech, occupational, and physical therapy consulted. Qualifiers: CVA mechanism: embolism Precerebral and cerebral artery: middle cerebral artery Laterality of affected vessel: left Qualified Code(s): I63.412 - Cerebral infarction due to embolism of left middle cerebral artery (3) Deep vein thrombosis (DVT) of femoral vein of left lower extremity Current Visit: Yes Status: Acute IVC filter in place. Per interventional radiology: well deployed in infrarenal IVC. Qualifiers: Chronicity: acute Qualified Code(s): I82.412 - Acute embolism and thrombosis of left femoral vein (4) Hyperlipidemia Current Visit: Yes Status: Chronic continue statin Qualifiers: Hyperlipidemia type: mixed hyperlipidemia Qualified Code(s): E78.2 - Mixed hyperlipidemia (5) Hypertension Current Visit: Yes Status: Chronic normotensive at this time. Continue home medications. Qualifiers: Hypertension type: essential hypertension Qualified Code(s): I10 - Essential (primary) hypertension Subjective Principal diagnosis: CVA Interval history: The patient was seen and examined. She had an episode of right inguinal pain overnight. She underwent CT of the abdomen and pelvis and was found not to have any retroperitoneal hematoma and there was no superficial hematoma present on exam. Currently she is tearful about what her new quality of life will be and states she is wishing to return home because she is tired of hospitals. She also states she is worried about being fired from her job because she will no longer be able to work. I discussed with her the importance of working toward rehabilitation in order to regain some of her independence. Objective PUL Vital signs: Last Vital Signs Temp 98.0 F 08/05/16 08:15 Pulse 60 08/05/16 07:30 Resp 16 08/05/16 07:30 BP 130/96 08/05/16 07:30 Pulse Ox 95 08/05/16 07:30 General appearance: no acute distress Eyes: nonicteric ENT: oropharynx moist Neck: supple Effort: normal Auscultation: bilateral: diminished breath sounds Cardiovascular: regular rate and rhythm Gastrointestinal: normoactive bowel sounds, soft, non-tender, non-distended Integumentary: normal Extremities: no cyanosis other (left sided hemiplegia with dysarthria, symmetric sensation to temperature and deep touch, left sided facial droop) depressed, tearful Results - Laboratory Findings CBC and BMP: 08/04/16 04:49 08/05/16 05:22 PT/INR, D-dimer PT 13.9 Seconds (9.4-12.1) H 08/04/16 08:22 Abnormal lab findings: Abnormal lab results WBC 12.5 K/mcL (4.3-11.1) H 08/04/16 04:49 Neutrophils # 10.4 K/mcL (1.6-8.9) H 07/31/16 05:08 PT 13.9 Seconds (9.4-12.1) H 08/04/16 08:22 Chloride 111 mEq/L (98-109) H 08/05/16 05:22 BUN 29 mg/dL (7-20) H 08/05/16 05:22 Est GFR (Non-Af Amer) 59 (> 60) L 08/05/16 05:22 BUN/Creatinine Ratio 31 (6-26) H 08/05/16 05:22 Glucose 139 mg/dL (70-99) H 08/05/16 05:22 POC Glucose 131 (58-89) H 08/04/16 16:36 Calculated Osmolality 306 (280-300) H 08/05/16 05:22 AST 44 Units/L (5-34) H 08/05/16 05:22 Creatine Kinase 246 Units/L (29-168) H 07/31/16 11:03 Troponin I 0.14 ng/mL (0-0.03) H* 08/05/16 05:22 B-Natriuretic Peptide 632 pg/mL (0-100) H 08/05/16 05:22 Albumin 3.4 g/dL (3.5-5.0) L 08/05/16 05:22 Albumin/Globulin Ratio 1.0 (1.1-2.2) L 08/05/16 05:22 LDL Cholesterol, Calc 109 mg/dL (0-99) H 07/31/16 05:08 Urine Clarity Cloudy (Clear) A 07/30/16 19:48 Urine Protein 30 mg/dL (Neg-Trace) H 07/30/16 19:48 Ur Squamous Epith Cells Many per lpf (None-Few) H 07/30/16 19:48 - Clinical Findings Intake & Output: Intake & Output 08/04/16 08/05/16 08/05/16 23:59 07:59 15:59 Intake Total 240 / 240 360 / 360 Output Total 800 / 800 225 / 225 75 / 75 Balance -560 / -560 135 / 135 -75 / -75 Weight 83.4 kg 84.3 kg - VTE Documentation of Mechanical Device: Intermittent pneumatic compression device Consult Discharge Plan - Plan Referrals: NO,PCP [Primary Care Provider] - - Attending Attestation I examined this patient and my medical decision-making was reviewed with the REMOTELY PILOTED VEHICLE CONTROLLER/PA/Advanced Practice Nurse/Resident Physician. I agree with the documented findings, disposition and treatment plan as described except to the extent set forth below.
[2016-08-05] MEDS ORDERED: Aspirin 81 MG TAB.CHEW PO SCH (09:00)
--- NOTE | 2016-08-05 09:52 | Event Note ---
Date of Encounter: 08/05/16 Time of Encounter: 08:15 The patient was examined, the chart and all data reviewed as well as imaging studies. Of note, this patient developed a stroke in the right middle cerebral artery distribution at time of presentation to the hospital and currently suffers from dense left LA plegia. The stroke was notably thought to have hemorrhagic component at the time of imaging at the time of the patient's presentation (etiology is likely atrial fibrillation) and hence the patient was not deemed a candidate for anticoagulation therapy. Furthermore, patient was noted to develop hypoxia a CT scan of the chest was obtained which revealed pulmonary embolic disease and Doppler studies of the lower extremities confirmed deep vein thrombosis. Given the history of recent hemorrhagic stroke , the patient was deemed a non-candidate for anticoagulation therapy and subsequently underwent placement of IVC filter. She was subsequently admitted to the intensive care unit for careful monitoring. I note that the patient's CODE STATUS is DNR CCA DNI. No acute overnight events were noted. Examination reveals a female appears her stated age she is awake and alert and communicative she obviously has left LA paresis no acute distress noted, vitals reviewed. Head normocephalic eyes pupils are reactive extraocular muscles are intact. Oral pharyngeal exam was unremarkable. Her neck exam supple there is no adenopathy or jugular venous distention. Cardiac exam irregular rate and rhythm is noted. Faint murmur. Chest exam reveals clear dorman bilaterally. Slight diminution of breath sounds over bases. Abdominal exam soft nontender bowel sounds are noted throughout. Her extremities were warm to touch pulses are intact. Neurologic exam left hemiparesis is noted. Laboratory data reviewed as well as recent imaging. Impressions #1 pulmonary embolism and deep vein thrombosis #2 recent hemorrhagic stroke right MCA distribution #3 atrial fibrillation as likely etiology of hemorrhagic stroke number for other medical problems as outlined in the comprehensive consultation note as well as the follow-up progress note. The patient will be transferred out of the intensive care unit today. She successfully underwent IVC filter placement yesterday. If the patient's clinical status remained stable over the next 1-2 days, she may be transferred to a rehabilitation facility. I think it would be prudent to have neurology reevaluate the patient in reference to potential anticoagulation in the future since the neurologist evaluating the patient initially did suggest reinstitution of anticoagulation a week or so from the onset of stroke however I believe that was without knowledge of hemorrhagic conversion of stroke. E Vahe [phone]
--- NOTE | 2016-08-05 11:42 | Neurology Progress Note ---
<Jayme Medina - Last Filed: 08/05/16 13:24> Date of Encounter: 08/05/16 Time of Encounter: 11:41 Assessment and Plan (1) Right basal ganglia embolic stroke Current Visit: Yes Status: Acute Initially pt presented the hospital with dysarthria, tingling/numbness/weakness of left upper/lower extremities, brain MRI 5 days ago showed acute ischemic insult involving right basal ganglia and anterior limb internal capsule with moderate hemorrhagic conversion, subsequently pt was transferred to ICU for saddle pulmonary embolism and IVC filter was placed, currently she is not on anticoagulation due to the hemorrhagic conversion, will order CT scan of head w/ o contrast today to see the extent of the hemorrhage, and will make further recommendation after reviewing the image for anticoagulation therapy. Subjective Principal diagnosis: Right sided CVA Interval history: Pt seen and examined, she con't to have flaccid paralysis on the left ride, speech has improved compare to the day of the admission, resting comfortably in bed in no acute distress. Objective - Constitutional Vitals: Temp Pulse Resp BP Pulse Ox 98.0 F 53 18 118/90 95 08/05/16 08:15 08/05/16 11:00 08/05/16 11:00 08/05/16 11:00 08/05/16 11:00 General appearance: Present: cooperative, A&O X 3, pleasant, no acute distress, answers questions appropriately - Head Head exam: Present: atraumatic, normal inspection, normocephalic - Eye Eye exam: Present: EOMI, normal appearance, PERRL - Extremities Exam Extremities exam: Present: normal inspection, warm, radial pulses palpable and symetrical. Absent: calf tenderness, tenderness - Neurological Exam Sensorimotor examination: Present: flaccid paralysis (on left side) Motor Examination: Absent: grossly full strength in all extremities, full strength in all major muscle groups Motor examination - right side: 5/5: deltoids, biceps, triceps, wrist flexion, wrist extension, cant hooker, hip flexors, quadriceps, plantarflexion Motor examination - left side: 1/5: deltoids, biceps, triceps, wrist flexion, wrist extension, hip flexors, cant hooker, quadriceps, plantarflexion Sensation intact: Present: intact Posture: Absent: rigid Reflex and gait examination: other (flaccid paralysis on left side) Mental Status Examination: Present: awake, alert, oriented to person, oriented to place, oriented to time, follows commands appropriately, answers questions appropriately, no agnosia, no aphasia, no aproxia Cranial nerve examination: Present: PERRL, EOMI, sensory to face intact, no facial asymmetry is present, hearing is intact symmetrically, tongue protrudes midline Cranial Nerve Exam: facial droop: Left - VTE Documentation of Mechanical Device: Intermittent pneumatic compression device Results - Laboratory Findings CBC and BMP: 08/04/16 04:49 08/05/16 05:22 Abnormal lab findings: Abnormal lab results WBC 12.5 K/mcL (4.3-11.1) H 08/04/16 04:49 Neutrophils # 10.4 K/mcL (1.6-8.9) H 07/31/16 05:08 PT 13.9 Seconds (9.4-12.1) H 08/04/16 08:22 Chloride 111 mEq/L (98-109) H 08/05/16 05:22 BUN 29 mg/dL (7-20) H 08/05/16 05:22 Est GFR (Non-Af Amer) 59 (> 60) L 08/05/16 05:22 BUN/Creatinine Ratio 31 (6-26) H 08/05/16 05:22 Glucose 139 mg/dL (70-99) H 08/05/16 05:22 POC Glucose 131 (58-89) H 08/04/16 16:36 Calculated Osmolality 306 (280-300) H 08/05/16 05:22 AST 44 Units/L (5-34) H 08/05/16 05:22 Creatine Kinase 246 Units/L (29-168) H 07/31/16 11:03 Troponin I 0.14 ng/mL (0-0.03) H* 08/05/16 05:22 B-Natriuretic Peptide 632 pg/mL (0-100) H 08/05/16 05:22 Albumin 3.4 g/dL (3.5-5.0) L 08/05/16 05:22 Albumin/Globulin Ratio 1.0 (1.1-2.2) L 08/05/16 05:22 LDL Cholesterol, Calc 109 mg/dL (0-99) H 07/31/16 05:08 Urine Clarity Cloudy (Clear) A 07/30/16 19:48 Urine Protein 30 mg/dL (Neg-Trace) H 07/30/16 19:48 Ur Squamous Epith Cells Many per lpf (None-Few) H 07/30/16 19:48 Consult Discharge Plan - Plan Referrals: NO,PCP [Primary Care Provider] - <Kenn Blue - Last Filed: 08/05/16 17:59> Date of Encounter: 08/05/16 Time of Encounter: 17:53 Assessment and Plan (1) CVA (cerebral vascular accident) Current Visit: Yes Status: Acute Repeat CT scan of the brain today does not fact reveal a large area of infarction involving the right cerebral hemisphere. Certainly there is an area of hyperemia central to the infarct involving the basal ganglia. It is no evidence of bobby hemorrhage. In any regard I agree with Dr. Abdi and his initial recommendation. I feel that anticoagulation is acceptable 7-10 days from the original date of the infarct. So would recommend perhaps waiting until August 10 before starting anticoagulation. Risk factor management is paramount. We will follow peripherally. Qualifiers: CVA mechanism: embolism Precerebral and cerebral artery: middle cerebral artery Laterality of affected vessel: left Qualified Code(s): I63.412 - Cerebral infarction due to embolism of left middle cerebral artery Subjective Interval history: The chart was reviewed, the patient was seen and examined. Case was discussed with Dr. Medina. I did review the CT scan of the head today. It certainly does reveal an area of hyperemia in the right basal ganglia. However there is no evidence of bobby hemorrhage. Patient is awake and alert she does have a left hemianopsia. Speech is dysarthric. Objective - Constitutional Vitals: Temp Pulse Resp BP Pulse Ox 97.9 F 141 18 122/107 94 08/05/16 15:56 08/05/16 17:13 08/05/16 17:13 08/05/16 17:13 08/05/16 17:13 Results - Laboratory Findings CBC and BMP: 08/04/16 04:49 08/05/16 05:22 Abnormal lab findings: Abnormal lab results WBC 12.5 K/mcL (4.3-11.1) H 08/04/16 04:49 Neutrophils # 10.4 K/mcL (1.6-8.9) H 07/31/16 05:08 PT 13.9 Seconds (9.4-12.1) H 08/04/16 08:22 Chloride 111 mEq/L (98-109) H 08/05/16 05:22 BUN 29 mg/dL (7-20) H 08/05/16 05:22 Est GFR (Non-Af Amer) 59 (> 60) L 08/05/16 05:22 BUN/Creatinine Ratio 31 (6-26) H 08/05/16 05:22 Glucose 139 mg/dL (70-99) H 08/05/16 05:22 POC Glucose 131 (58-89) H 08/04/16 16:36 Calculated Osmolality 306 (280-300) H 08/05/16 05:22 AST 44 Units/L (5-34) H 08/05/16 05:22 Creatine Kinase 246 Units/L (29-168) H 07/31/16 11:03 Troponin I 0.14 ng/mL (0-0.03) H* 08/05/16 05:22 B-Natriuretic Peptide 632 pg/mL (0-100) H 08/05/16 05:22 Albumin 3.4 g/dL (3.5-5.0) L 08/05/16 05:22 Albumin/Globulin Ratio 1.0 (1.1-2.2) L 08/05/16 05:22 LDL Cholesterol, Calc 109 mg/dL (0-99) H 07/31/16 05:08 Urine Clarity Cloudy (Clear) A 07/30/16 19:48 Urine Protein 30 mg/dL (Neg-Trace) H 07/30/16 19:48 Ur Squamous Epith Cells Many per lpf (None-Few) H 07/30/16 19:48
[2016-08-05] MEDS ORDERED: *HR* OxyCODONE/APAP 5/325 TABLET PO PRN (16:49)
[2016-08-05] MEDS ORDERED: Ondansetron 4 MG/2 ML VIAL IVP PRN (16:49)
[2016-08-05] MEDS ORDERED: Acetaminophen 325 MG TABLET PO PRN (16:49)
--- NOTE | 2016-08-05 16:51 | Electrocardiograph Report ---
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
[2016-08-06] MEDS: dilTIAZem HCl 60 MG TABLET PO SCH ×4 (04:05→20:38)
[2016-08-06 08:13] LABS: BUN/Creatinine Ratio 35 (6-26); Blood Urea Nitrogen 29 mg/dL (7-20); Calcium 10.4 mg/dL (8.6-10.8); Carbon Dioxide 24 mEq/L (19-29); Chloride 108 mEq/L (98-109); Glucose 126 mg/dL (70-99); Osmolality,Calculated 299 (280-300); Potassium 3.9 mEq/L (3.5-4.5); Sodium 141 mEq/L (136-145); eGFR For African Americans > 60 (> 60); eGFR For Non-African Americans > 60 (> 60)
--- NOTE | 2016-08-06 08:55 | Pulmonology Progress Note ---
Date of Encounter: 08/06/16 Time of Encounter: 08:10 Assessment and Plan (1) Pulmonary embolism with acute cor pulmonale Current Visit: Yes Status: Acute IVC filter placed 08/04. Saturating well on 2L. Unable to anticoagulate at the this time due to hemorrhagic conversion of previous ischemic stroke. Transfer out of ICU 08/05 and monitor 1 more day before transfer to inpatient rehabilitation. Patient was transferred out of the ICU yesterday, but there was no bed availability. Qualifiers: Pulmonary embolism type: saddle Chronicity: acute Qualified Code(s): I26.02 - Saddle embolus of pulmonary artery with acute cor pulmonale (2) CVA (cerebral vascular accident) Current Visit: Yes Status: Acute Ischemic stroke with hemorrhagic conversion. Left sided hemiplegia with associated dysarthria and dysphagea. The patient was due to be moved to [place] for inpatient rehab 08/04 but subsequently had a PE before she was able to be discharged. Speech, occupational, and physical therapy consulted. Neurology was consulted yesterday. Repeat consult demonstrated that it would be appropriate to anticoagulate starting 08/10. Will discharge with medication to start at that time. Neurology was consulted again as there was no mention of hemorrhagic conversion on previous consult. Qualifiers: CVA mechanism: embolism Precerebral and cerebral artery: middle cerebral artery Laterality of affected vessel: left Qualified Code(s): I63.412 - Cerebral infarction due to embolism of left middle cerebral artery (3) Deep vein thrombosis (DVT) of femoral vein of left lower extremity Current Visit: Yes Status: Acute IVC filter in place. Per interventional radiology: well deployed in infrarenal IVC. Qualifiers: Chronicity: acute Qualified Code(s): I82.412 - Acute embolism and thrombosis of left femoral vein (4) Hyperlipidemia Current Visit: Yes Status: Chronic continue statin Qualifiers: Hyperlipidemia type: mixed hyperlipidemia Qualified Code(s): E78.2 - Mixed hyperlipidemia (5) Hypertension Current Visit: Yes Status: Chronic normotensive at this time. Continue home medications. Qualifiers: Hypertension type: essential hypertension Qualified Code(s): I10 - Essential (primary) hypertension (6) Atrial fibrillation Current Visit: Yes Status: Chronic Currently rate controlled. Morning medications were not given until after multi- disciplinary rounds. Heart rate up to 135. On Diltiazem 60mg PO Q6hr Metoprolol 50mg PO BID Morning medications given. Will assess and followup with response. Chest X-Ray ordered for dyspnea. One time order of IVP Lasix 20mg. Qualifiers: Atrial fibrillation type: paroxysmal Qualified Code(s): I48.0 - Paroxysmal atrial fibrillation Subjective Principal diagnosis: Right sided CVA Interval history: The patient was seen and examined. She was calmer this morning and had no acute events overnight. She currently states that she is comfortable but will get some shortness of breath without her supplemental oxygen. Per nursing the patient was less talkative today and appeared more short of breath. Her morning medications for her atrial fibrillation were not given until after morning rounds. She became tachycardic up to 135bpm, but does not have any additional complaints herself at 10:45AM on reexamination. Objective PUL Vital signs: Last Vital Signs Temp 99.6 F 08/06/16 07:41 Pulse 110 08/06/16 08:30 Resp 16 08/06/16 08:30 BP 95/74 08/06/16 08:30 Pulse Ox 96 08/06/16 08:30 General appearance: no acute distress Eyes: nonicteric ENT: oropharynx moist Effort: normal Auscultation: bilateral: clear Cardiovascular: irregular rhythm, other (regular rate) Gastrointestinal: normoactive bowel sounds, soft, non-tender, non-distended Integumentary: normal Extremities: no cyanosis other (left sided hemiplegia with dysarthria, symmetric sensation to temperature and deep touch, left sided facial droop) mood appropriate Results - Laboratory Findings CBC and BMP: 08/04/16 04:49 08/06/16 07:52 PT/INR, D-dimer PT 13.9 Seconds (9.4-12.1) H 08/04/16 08:22 Abnormal lab findings: Abnormal lab results WBC 12.5 K/mcL (4.3-11.1) H 08/04/16 04:49 Neutrophils # 10.4 K/mcL (1.6-8.9) H 07/31/16 05:08 PT 13.9 Seconds (9.4-12.1) H 08/04/16 08:22 BUN 29 mg/dL (7-20) H 08/06/16 07:52 BUN/Creatinine Ratio 35 (6-26) H 08/06/16 07:52 Glucose 126 mg/dL (70-99) H 08/06/16 07:52 POC Glucose 131 (58-89) H 08/04/16 16:36 AST 44 Units/L (5-34) H 08/05/16 05:22 Creatine Kinase 246 Units/L (29-168) H 07/31/16 11:03 Troponin I 0.14 ng/mL (0-0.03) H* 08/05/16 05:22 B-Natriuretic Peptide 632 pg/mL (0-100) H 08/05/16 05:22 Albumin 3.4 g/dL (3.5-5.0) L 08/05/16 05:22 Albumin/Globulin Ratio 1.0 (1.1-2.2) L 08/05/16 05:22 LDL Cholesterol, Calc 109 mg/dL (0-99) H 07/31/16 05:08 Urine Clarity Cloudy (Clear) A 07/30/16 19:48 Urine Protein 30 mg/dL (Neg-Trace) H 07/30/16 19:48 Ur Squamous Epith Cells Many per lpf (None-Few) H 07/30/16 19:48 - Clinical Findings Intake & Output: Intake & Output 08/05/16 08/06/16 08/06/16 23:59 07:59 15:59 Intake Total 240 / 240 120 / 120 Output Total 250 / 250 370 / 370 Balance -10 / -10 -250 / -250 Weight 84.277 kg - VTE Documentation of Mechanical Device: Intermittent pneumatic compression device Consult Discharge Plan - Plan Referrals: NO,PCP [Primary Care Provider] - - Attending Attestation I examined this patient and my medical decision-making was reviewed with the WAREHOUSE ASSOCIATE DRIVER/PA/Advanced Practice Nurse/Resident Physician. I agree with the documented findings, disposition and treatment plan as described except to the extent set forth below.
[2016-08-06] MEDS: Aspirin 81 MG TAB.CHEW PO SCH (10:30)
[2016-08-06] MEDS ORDERED: Furosemide 20 MG/2 ML VIAL IVP ONE (10:50)
[2016-08-07] MEDS: dilTIAZem HCl 60 MG TABLET PO SCH ×2 (03:19→09:12)
--- NOTE | 2016-08-07 07:40 | Discharge Summary ---
Date of Encounter: 08/07/16 Time of Encounter: 07:38 - Discharge Diagnosis (1) Pulmonary embolism with acute cor pulmonale Priority: Secondary Status: Acute Qualifiers: Pulmonary embolism type: saddle Chronicity: acute Qualified Code(s): I26.02 - Saddle embolus of pulmonary artery with acute cor pulmonale (2) CVA (cerebral vascular accident) Priority: Primary Status: Acute Qualifiers: CVA mechanism: embolism Precerebral and cerebral artery: middle cerebral artery Laterality of affected vessel: left Qualified Code(s): I63.412 - Cerebral infarction due to embolism of left middle cerebral artery (3) Deep vein thrombosis (DVT) of femoral vein of left lower extremity Priority: Secondary Status: Acute Qualifiers: Chronicity: acute Qualified Code(s): I82.412 - Acute embolism and thrombosis of left femoral vein (4) Hyperlipidemia Priority: Secondary Status: Chronic Qualifiers: Hyperlipidemia type: mixed hyperlipidemia Qualified Code(s): E78.2 - Mixed hyperlipidemia (5) Hypertension Priority: Secondary Status: Chronic Qualifiers: Hypertension type: essential hypertension Qualified Code(s): I10 - Essential (primary) hypertension (6) Atrial fibrillation Priority: Secondary Status: Chronic Comments: Start anticoagulation on 08/10 per recommendation of neurology. Qualifiers: Atrial fibrillation type: paroxysmal Qualified Code(s): I48.0 - Paroxysmal atrial fibrillation - Discharge Medications Prescriptions: Aspirin 81 mg PO DAILY #30 tab.chew Warfarin [Coumadin] 5 mg PO 1800 #30 tablet Home Medications: Fenofibrate [Lofibra] 160 mg PO DAILY 02/17/16 [History] Metoprolol [Lopressor] 50 mg PO BID 02/17/16 [History] Sotalol [Betapace] 80 mg PO DAILY 02/17/16 [History] Aspirin 81 mg PO DAILY #30 tab.chew 08/07/16 [Rx] Atorvastatin [Lipitor] 80 mg PO HS tablet 08/07/16 [Rx] Diltiazem HCl [Cardizem] 60 mg PO Q6H tablet 08/07/16 [Rx] Warfarin [Coumadin] 5 mg PO 1800 #30 tablet 08/07/16 [Rx] Allergies/Adverse Reactions: Allergies Penicillins Allergy (Verified 02/17/16 19:46) Hives Sulfa (Sulfonamide Antibiotics) Allergy (Verified 02/17/16 19:46) Hives Labs on day of discharge: Labs from last 24 hours 08/06/16 08/06/16 10:35 07:52 Sodium 141 Potassium 3.9 Chloride 108 Carbon Dioxide 24 BUN 29 H Creatinine 0.84 Est GFR ( Amer) > 60 Est GFR (Non-Af Amer) > 60 BUN/Creatinine Ratio 35 H Glucose 126 H POC Glucose 127 H Calculated Osmolality 299 Calcium 10.4 - Impressions ITS Impressions IVC Filter Placement 08/04/16 00:00 IMPRESSION: No caval thrombus Successful placement of an infrarenal inferior vena cava filter D/ / 08/05/2016 08:21:56 So Flynn MD / [facility] Interpreting Provider: So Flynn MD Chest CTA 08/04/16 12:05 IMPRESSION: 1. Acute pulmonary emboli with a mild nonocclusive main pulmonary artery saddle embolus and severe bilateral near occlusive saddle emboli of the right and left pulmonary arteries with extension to all of the lobar pulmonary arteries. There is evidence of right heart dysfunction. 2. Nonspecific bilateral mild lower lobe subpleural opacities which could represent atelectasis or possible developing pulmonary infarcts. Critical results were called by Dr. Carl Gramajo MD to Juan Francisco Esparza on 08/04/2016 at 14:27. D/ / 08/04/2016 14:52:21 Carl Gramajo MD / [facility] Interpreting Provider: Carl Gramajo MD Abdomen/Pelvis CT 08/04/16 23:23 IMPRESSION: No retroperitoneal bleed. Right lower lobe atelectasis versus infiltrates. Diverticulosis coli without evidence of acute diverticulitis. D/ / Miguel Angel Mariano MD / Miguel Angel Mariano MD Interpreting Provider: Miguel Angel Mariano MD Head CT 08/05/16 13:23 IMPRESSION: 1. Re-demonstration of the patient's known recent right basal ganglia infarct with central hemorrhagic transformation which is unchanged compared with the previous exam allowing for differences in technique. 2. No new hemorrhage or new infarct identified. D/ / 08/05/2016 15:26:49 Clinton Figueroa MD / Tavia Thayer Interpreting Provider: Clinton Figueroa MD Chest X-Ray 08/06/16 10:49 IMPRESSION: No acute cardiopulmonary disease. D/ / Cedrick Ojeda MD / Cedrick Ojeda MD Interpreting Provider: Cedrick Ojeda MD Date of admission: 07/31/16 02:59 Primary care physician: PCP NO Consults: 07/31/16 03:12 Consult to Cook Chill Technician [CONS] Routine Reason for SW Consult: Significant stroke with left-sided weakness. Likely need rehab after discharge. 07/31/16 07:57 Consult to Cardiology [CONS] Routine Comment: Consulting Provider: Cardiology [place] Reason for Consult: Elevated troponin; paroxysmal A fib Call Completed: No 08/03/16 05:45 Consult to Speech Therapy [CONS] Stat Comment: Evaluate, develop and implement POC Reason for Consult: Patient reports aspirating anything she swallows into her lungs. Appreciate re-evaluation for swallowing. Call Completed: No 08/04/16 08:15 Consult to Interventional Radiology [CONS] Routine Consulting Provider: Radiology [facility] Reason for Consult: DVT - needs IVC filter Time Notified: 08:15 Call Completed: Yes 08/05/16 11:26 Consult to Neurology [CONS] Stat Consulting Provider: Neu[facility] Reason for Consult: previously seen by neurology. wanted clarification of anticoagulation post conversion of ischemic stroke to hemorrhagic. Time Notified: 11:28 Call Completed: Yes Discharging clinician: Domingo Rico Anticipated date of discharge: 08/07/16 - Patient Status Disposition: Transfer Inpatient Rehab Fac Condition: Fair Functional capacity at discharge: wheelchair bound Overall status at discharge: patient is not back to baseline - Discharge Instructions Follow Up With: NO,PCP [Primary Care Provider] - Additional Instructions: Begin anticoagulation on 08/10 with coumadin. Will need INR checks for dose adjustment. - Diet and Activity Activity: increase activity as tolerated Diet: advance to your usual diet - Hospital Course Hospital course: Ms. Ball is a 71 year old female who presented on 07/30 to the emergency department after a fall and was found to have left sided flaccid paralysis with left sided facial droop. She was found to have an ischemic stroke, which converted to hemorrhagic stroke on imaging on 07/31. She was not anticoagulated. She was then found to have a DVT on 08/03 and was scheduled to have an IVC filter placed on 08/04. On 08/04 just prior to undergoing IVC filter placement she became short of breath and had some pain in her neck and requested the procedure be cancelled. She underwent CTA on 08/04 and was found to have bilateral PE. She was then taken back to have the IVC filter placed and was transferred to the ICU for closer monitoring. She has been stable and oxygenating well with no acute events since transfer to the ICU. I discussed with family the plan of care that we wanted to monitor her for two days after her initial transfer to the ICU and then proceed with discharging her to inpatient rehabilitation. She was evaluated by neurology who recommended anticoagulation could be started on 08/10 for her atrial fibrillation to prevent future strokes. The plan of care was discussed with the patient who agreed with the planned course and all questions were answered. - Time Spent with Patient Total time spent providing and/or coordinating discharge services: Physical Examination Vital Signs: Vital Signs, Last 4 Hours Temp Pulse Resp BP Pulse Ox 08/07/16 07:31 97.3 F L 08/07/16 05:00 64 20 118/74 93 General appearance: no acute distress Eyes: nonicteric ENT: oropharynx moist Neck: supple Effort: normal Auscultation: bilateral: diminished breath sounds (lung bases (mild)) Cardiovascular: regular rate and rhythm Gastrointestinal: normoactive bowel sounds, soft, non-tender, non-distended Integumentary: normal Extremities: no cyanosis other (left sided hemiplegia with dysarthria, symmetric sensation to temperature and deep touch, left sided facial droop) mood appropriate - VTE Documentation of Mechanical Device: Intermittent pneumatic compression device - Attending Attestation I examined this patient and my medical decision-making was reviewed with the BOX PRINTER/PA/Advanced Practice Nurse/Resident Physician. I agree with the documented findings, disposition and treatment plan as described except to the extent set forth below.
--- NOTE | 2016-08-07 08:08 | Physician Discharge Referral ---
ExtendedCare Referral Info Transfer To: Inpatient rehabilitation center Institutional Level of Care: Skilled - Diagnosis (1) Pulmonary embolism with acute cor pulmonale Priority: Secondary Status: Acute (2) CVA (cerebral vascular accident) Priority: Primary Status: Acute (3) Deep vein thrombosis (DVT) of femoral vein of left lower extremity Priority: Secondary Status: Acute (4) Hyperlipidemia Priority: Secondary Status: Chronic (5) Hypertension Priority: Secondary Status: Chronic (6) Atrial fibrillation Priority: Secondary Status: Chronic Prognosis: Fair Aware of Diagnosis: Patient, Family - Transfer Medications Prescriptions: Aspirin 81 mg PO DAILY #30 tab.chew Warfarin [Coumadin] 5 mg PO 1800 #30 tablet Home Medications: Fenofibrate [Lofibra] 160 mg PO DAILY 02/17/16 [History] Metoprolol [Lopressor] 50 mg PO BID 02/17/16 [History] Sotalol [Betapace] 80 mg PO DAILY 02/17/16 [History] Aspirin 81 mg PO DAILY #30 tab.chew 08/07/16 [Rx] Atorvastatin [Lipitor] 80 mg PO HS tablet 08/07/16 [Rx] Diltiazem HCl [Cardizem] 60 mg PO Q6H tablet 08/07/16 [Rx] Warfarin [Coumadin] 5 mg PO 1800 #30 tablet 08/07/16 [Rx] Allergies/Adverse Reactions: Allergies Penicillins Allergy (Verified 02/17/16 19:46) Hives Sulfa (Sulfonamide Antibiotics) Allergy (Verified 02/17/16 19:46) Hives - Respiratory Orders Smoking Cessation: Smoking cessation has been advised. For more information, call the [place] Tobacco Quit Line at 5-603-WUSQ-NOW. - Lab Orders Lab Orders: Other (include drug levels w/frequency) (INR starting 08/10/16 every 2-3 days until INR is withing range of 2-3. Once two consecutive doses are within range can switch to weekly.) - Advance Directives Code Status: DNR-Arrest - Rehabiliation Orders Rehab Orders: Evaluation for Physical Therapy, Evaluation for Occupational Therapy, Evaluation for Speech Therapy - Treatments List/Other: Do not start coumadin until 08/10. This was the recommendation given by the neurologist when evaluated as an inpatient. - Diet Orders Regular CERTIFICATION: I certify that the transfer of the above named patient to an Extended Care Facility is necessary for the continuing treatment of the diagnosis listed. The above information is true and accurate reflection of patient's current condition. Confidential - Redisclosure prohibited without a patient's written consent.
[2016-08-07 09:08] LABS: INR 1.3; Prothrombin Time 14.4 Seconds (9.4-12.1)
[2016-08-07] MEDS: Aspirin 81 MG TAB.CHEW PO SCH (09:11)
[2016-08-07 09:20] VITALS: BP 140/90
== END 2016-08-07 13:00 | DRG 40 ==
LOC: EMEROO 18:50 → 2NENU 18:50 → ICNU 08-04 16:23
PROVIDERS: ADMIT Internal Medicine; ATTEND Internal Medicine